=== PATIENT | male | born 1960 | race Caucasian/White ===

== ENCOUNTER 2024-11-16 09:35 | Inpatient (IN) ==
--- NOTE | 2024-11-16 09:47 | Emergency Department Note ---
Impression & Plan Cellulitis ED Provider Note CHIEF COMPLAINT: Infection HISTORY OF PRESENT ILLNESS: This 63-year-old male patient presents to the emergency department from the [facility] for swelling to the right elbow, and right forearm. He reports no injury to the arm, in terms of open area of the skin. He reports no bite. He states he was recently ill last week, with an upper respiratory infection. He states he is having bodyaches, fever, and feels generally unwell. REVIEW OF SYSTEMS: A review of systems was performed with positives and pertinent negatives listed in the history of present illness. All other systems were reviewed and are negative. ALLERGIES: See below MEDICATIONS: See below PMH: See below PHYSICAL EXAM: VITALS: Vitals are noted on the nurse's note and reviewed by myself. Vital signs stable. GENERAL: 63-year-old male, in no acute distress, nondiaphoretic, well-developed well-nourished. SKIN: Erythema and edema extending from the right elbow to distal forearm, on the medial aspect with soft tissue swelling present. No abrasion noted. HEAD: Normocephalic atraumatic. HEART: Tachycardia with regular rhythm without murmurs gallops or rubs. LUNGS: Clear to auscultation bilaterally without wheezes, rales or rhonchi. No retractions or accessory muscle use. MUSCULOSKELETAL: Full ROM, right elbow, however painful. Edema and erythema extends from the elbow to the distal forearm. Tenderness to palpation over the medial aspect of the proximal forearm. No tenderness to palpation over the elbow joint itself. Radial pulse intact. Supercharge Repair Supervisor strength 5/5. NEURO: Patient was alert and oriented to person place and time. No focal neurological deficits. MEDICAL DECISION MAKING: The patient is a 63-year-old male who arrives to the emergency department for evaluation of the above-stated complaint. A sepsis workup was obtained, with addition of ESR, CRP. Lab work shows leukocytosis, with a stable hemoglobin and hematocrit, CMP is generally unremarkable. ESR CRP elevated, lactate negative. X-ray imaging of the right elbow and forearm were obtained which per my interpretation show soft tissue swelling, however no bony abnormality. Ultrasound imaging was also obtained, which was not completed prior to admission and will be evaluated by the hospitalist. IV fluid resuscitation was provided, as well as IV morphine for pain, and IV antibiotics. The patient will require hospital admission, and likely evaluation from orthopedics if septic joint is diagnosis of exclusion. Contact was made with the [facility] hospitalist, Dr. Kelly who agreed to evaluate and accept the patient under his care for admission. Please refer to his documentation for further patient workup and care. DIFFERENTIAL DIAGNOSIS: Cellulitis, septic joint, sepsis, MRSA, DVT, necrotizing fasciitis, drug reaction, as well as other pathologies. Continuous supervisor properties: Order was placed for continuous supervisor properties. Patient was placed on the supervisor properties. Patient was noted to be in sinus tachycardia at an initial rate of 113 bpm. The chart was completed utilizing [employer] voice recognition software. Grammatical errors, random word insertions, pronoun errors, and incomplete sentences are an occasional consequence of this system due to software limitations, ambient noise, and hardware issues. Any formal questions or concerns about the content, text, or information contained within the body of this dictation should be directly addressed to the physician for clarification. Past Med/Surg History Problem List (Updated 11/16/24 @ 11:19 by Amador Kelly MD) Sepsis Social History Smoking Status: Former smoker Feels Safe at Home: Yes Results & Data (ED) Vital Signs Vital Signs - 24 hr 11/16/24 09:37 11/16/24 10:46 11/16/24 11:08 Temperature 37.2 C Temperature Source Temporal Artery Scan Pulse Rate 135 H 113 H Pulse Rate [Apical] 106 H Pulse Rhythm Pulse Rhythm [Apical] Regular Pulse Strength [Apical] Normal Respiratory Rate 20 20 Respiratory Effort / Characteristics Non-Labored Spontaneous Respiratory Depth Normal Normal Respiratory Pattern Regular Blood Pressure 108/79 Blood Pressure [Left Arm] 145/83 H Blood Pressure Mean 88 Blood Pressure Mean [Left Arm] 103 Pulse Oximetry 93 95 Oxygen Delivery Method Room Air Room Air Sepsis Recent Fever Within 48 Hours Yes Sepsis New/Unexplained Change in Mental Status No Sepsis Action Taken by Nursing No Action Required 11/16/24 11:10 Temperature Temperature Source Pulse Rate 104 H Pulse Rate [Apical] Pulse Rhythm Regular Pulse Rhythm [Apical] Pulse Strength [Apical] Respiratory Rate 20 Respiratory Effort / Characteristics Respiratory Depth Respiratory Pattern Blood Pressure Blood Pressure [Left Arm] Blood Pressure Mean Blood Pressure Mean [Left Arm] Pulse Oximetry 95 Oxygen Delivery Method Room Air Sepsis Recent Fever Within 48 Hours Sepsis New/Unexplained Change in Mental Status Sepsis Action Taken by Intermediate Medications Current Medication List: was personally reviewed by me Laboratory Data Attestation: I reviewed the patient's lab results. 11/16/24 10:10 11/16/24 10:10 Lab Results 11/16/24 Range/Units 10:10 WBC 16.43 H (4.8-10.8) K/ul RBC 5.27 (4.70-6.10) M/uL Hgb 15.6 (14.0-18.0) g/dl Hct 46.1 (42.0-52.0) % MCV 87.5 (80.0-100.0) fL MCH 29.6 (25.0-34.0) pg MCHC 33.8 (32.0-36.0) g/dL RDW Std Deviation 43.1 (36.4-46.3) fL RDW Coeff of Kemi 13.5 (11.5-14.5) % Plt Count 253 (130-400) K/uL MPV 9.4 (9.4-12.4) fL Immature Gran % (Auto) 0.7 % Neut % (Auto) 83.5 % Lymph % (Auto) 7.2 % [place] % (Auto) 8.3 % Eos % (Auto) 0.0 % Baso % (Auto) 0.3 % Neut # (Auto) 13.71 H (1.40-6.50) K/uL Lymph # (Auto) 1.18 L (1.20-3.40) K/uL [place] # (Auto) 1.37 H (0.11-0.59) K/uL Eos # (Auto) 0.00 (0.00-0.50) K/uL Baso # (Auto) 0.05 (0.00-0.20) K/uL Immature Gran # (Auto) 0.12 (0.01-0.20) K/uL ESR 34 H (0-20) mm/hr Sodium 134 L (136-145) mmol/L Potassium 3.9 (3.5-5.1) mmol/L Chloride 101 (98-107) mmol/L Carbon Dioxide 25 (21-32) mmol/L Anion Gap 8 (3-11) BUN 18 (6-23) mg/dl Creatinine 1.22 (0.6-1.4) mg/dl Est Cr Clr Drug Dosing 72.7 ml/min eGFR 67.03 BUN/Creatinine Ratio 14.8 (10-20) Glucose 130 H (70-99(Fasting)) mg/dl Lactate 1.7 (0.4-2.0) mmol/L Calcium 8.6 (8.6-10.3) mg/dl Magnesium 1.8 (1.7-2.4) mg/dl Total Bilirubin 1.4 H (0.2-1.0) mg/dl Direct Bilirubin 0.4 H (0-0.2) mg/dl AST 36 (13-39) U/L ALT 30 (7-52) U/L Alkaline Phosphatase 91 (34-104) U/L Troponin I High Sens 6.4 (0-20) pg/ml C-Reactive Protein 15.87 H (0-0.5) mg/dl Total Protein 7.2 (6.0-8.3) gm/dl Albumin 3.7 (3.4-5.0) gm/dl Procalcitonin 0.34 (0-0.5) ng/ml Administered Medications Sodium Chloride (Nss) 1,000 mls @ 999 mls/hr IV .Q1H1M KRISTA Stop: 11/16/24 12:00 Last Admin: 11/16/24 10:29 Dose: 999 mls/hr Documented By: Infusion: 11/16/24 10:29 Dose: Infused Documented By: Admin: 11/16/24 10:28 Dose: 999 mls/hr Documented By: FEROZ Discontinued Medications Piperacillin Sod/Tazobactam Sod (Zosyn) 4.5 gm in 100 mls @ 200 mls/hr IV NOW ONE; Protocol Stop: 11/16/24 11:08 Last Admin: 11/16/24 11:01 Dose: 200 mls/hr Documented By: FRANCOIS Morphine Sulfate (Morphine Sulfate 4 Mg/Ml 1 Ml Carp\Vial) 4 mg IV NOW STA Stop: 11/16/24 10:02 Last Admin: 11/16/24 10:47 Dose: 4 mg Documented By: FEROZ Imaging Data Attestation: I personally reviewed and interpreted this imaging study as follows: Radiologist's Impression: Elbow X-Ray 11/16/24 09:52 EXAM: Radiographs of the Right Elbow Complete 3 Views INDICATION: [place] TECHNIQUE: Frontal, lateral and oblique views of the right elbow. COMPARISON: No relevant prior studies available. FINDINGS: Bones/joints: No fracture, erosion or dislocation. Soft tissues: There is generalized periarticular soft tissue swelling. No soft tissue gas or radiopaque foreign body. IMPRESSION: There is generalized periarticular soft tissue swelling. No osseous abnormality. ACT 112: Negative or not required by law. Electronically signed by Rani Gonzalez 11-16-2024 10:54 AM Forearm X-Ray 11/16/24 09:52 EXAM: Radiographs of the Right Forearm 2 Views INDICATION: [place] TECHNIQUE: Frontal and lateral views of the right forearm. COMPARISON: No relevant prior studies available. FINDINGS: Bones/joints: No fracture, erosion or dislocation. Soft tissues: Mild dorsal soft tissue edema noted most prominent at the level of the proximal ulnar shaft. No soft tissue gas or radiopaque foreign body. IMPRESSION: Soft tissue swelling. No osseous abnormality. ACT 112: Negative or not required by law. Electronically signed by Rani Gonzalez 11-16-2024 10:54 AM Chest X-Ray 11/16/24 09:53 EXAM: Radiograph of the Chest 1 View INDICATION: Edema. TECHNIQUE: Frontal view of the chest. COMPARISON: No relevant prior studies available. FINDINGS: Lungs and pleural spaces: The lungs are slightly hyperinflated. Apical bullous changes present with mild parenchymal scarring. No consolidation or pulmonary edema. No pleural effusion or pneumothorax. Heart: Shape and configuration within normal limits allowing for technique. Mediastinum: Normal contour. Bones/joints: No fracture, erosion or dislocation. Soft tissues: No abnormality noted. No radiopaque foreign body noted. Upper abdomen: No abnormality noted. IMPRESSION: Chronic changes. No acute cardiopulmonary disease noted. ACT 112: Negative or not required by law. Electronically signed by Rani Gonzalez 11-16-2024 10:54 AM Discharge Plan Visit Data Chief Complaint: Arm Pain Stated Complaint: R ARM PAIN/SWELLING ED Provider: Omar Rogers ED Midlevel Provider: Merle Borden Discharge Problem: Cellulitis Forms Stand Alone Forms: [facility] Referrals Referrals: PCP,NO [Physician] -
[2024-11-16] MEDS: SODIUM CHLORIDE 0.9% 1,000 ML IV SCH (10:28)
[2024-11-16 10:37] LABS: Basophils # (auto) 0.05 K/uL (0.00-0.20); Basophils % (auto) 0.3 %; Hematocrit (blood only) 46.1 % (42.0-52.0); Hemoglobin 15.6 g/dl (14.0-18.0); Immature Granulocytes # (auto) 0.12 K/uL (0.01-0.20); Immature Granulocytes % (auto) 0.7 %; Lymphocytes # (auto) 1.18 K/uL (1.20-3.40); Lymphocytes % (auto) 7.2 %; Mean Corpuscular Hemoglobin 29.6 pg (25.0-34.0); Mean Corpuscular Hgb Conc 33.8 g/dL (32.0-36.0); Mean Corpuscular Volume 87.5 fL (80.0-100.0); Mean Platelet Volume 9.4 fL (9.4-12.4); Monocytes # (auto) 1.37 K/uL (0.11-0.59); Monocytes % (auto) 8.3 %; Neutrophils # (auto) 13.71 K/uL (1.40-6.50); Neutrophils % (auto) 83.5 %; Platelet Count 253 K/uL (130-400); RDW Coefficient of Variation 13.5 % (11.5-14.5); RDW Standard Deviation 43.1 fL (36.4-46.3); Red Blood Count 5.27 M/uL (4.70-6.10); White Blood Count 16.43 K/ul (4.8-10.8)
[2024-11-16] MEDS: MoRPHine SULFATE 4 MG/ML 1 ML CARP\\VIAL IV STA (10:47)
[2024-11-16] MEDS ORDERED: VANCOMYCIN CONSULT ACTIVE PRN (10:52)
--- NOTE | 2024-11-16 10:55 | XRay Report ---
EXAM: Radiographs of the Right Forearm 2 Views INDICATION: Edema TECHNIQUE: Frontal and lateral views of the right forearm. COMPARISON: No relevant prior studies available. FINDINGS: Bones/joints: No fracture, erosion or dislocation. Soft tissues: Mild dorsal soft tissue edema noted most prominent at the level of the proximal ulnar shaft. No soft tissue gas or radiopaque foreign body. IMPRESSION: Soft tissue swelling. No osseous abnormality. ACT 112: Negative or not required by law. Electronically signed by Rani Gonzalez 11-16-2024 10:54 AM
--- NOTE | 2024-11-16 10:55 | XRay Report ---
EXAM: Radiograph of the Chest 1 View INDICATION: Edema. TECHNIQUE: Frontal view of the chest. COMPARISON: No relevant prior studies available. FINDINGS: Lungs and pleural spaces: The lungs are slightly hyperinflated. Apical bullous changes present with mild parenchymal scarring. No consolidation or pulmonary edema. No pleural effusion or pneumothorax. Heart: Shape and configuration within normal limits allowing for technique. Mediastinum: Normal contour. Bones/joints: No fracture, erosion or dislocation. Soft tissues: No abnormality noted. No radiopaque foreign body noted. Upper abdomen: No abnormality noted. IMPRESSION: Chronic changes. No acute cardiopulmonary disease noted. ACT 112: Negative or not required by law. Electronically signed by Rani Gonzalez 11-16-2024 10:54 AM
--- NOTE | 2024-11-16 10:55 | XRay Report ---
EXAM: Radiographs of the Right Elbow Complete 3 Views INDICATION: [place] TECHNIQUE: Frontal, lateral and oblique views of the right elbow. COMPARISON: No relevant prior studies available. FINDINGS: Bones/joints: No fracture, erosion or dislocation. Soft tissues: There is generalized periarticular soft tissue swelling. No soft tissue gas or radiopaque foreign body. IMPRESSION: There is generalized periarticular soft tissue swelling. No osseous abnormality. ACT 112: Negative or not required by law. Electronically signed by Rani Gonzalez 11-16-2024 10:54 AM
[2024-11-16 10:59] LABS: Albumin Level 3.7 gm/dl (3.4-5.0); BUN Creatinine Ratio 14.8 (10-20); Bilirubin Direct 0.4 mg/dl (0-0.2); Bilirubin,Total 1.4 mg/dl (0.2-1.0); C Reactive Protein 15.87 mg/dl (0-0.5); Calcium 8.6 mg/dl (8.6-10.3); Creatinine Clr Calc Pharmacy 72.7 ml/min; Magnesium 1.8 mg/dl (1.7-2.4); Potassium 3.9 mmol/L (3.5-5.1); Total Protein 7.2 gm/dl (6.0-8.3)
[2024-11-16] MEDS: PIPERACILLIN/TAZOBACTAM 4.5 GM/100 ML BAG IV ONE (11:01)
[2024-11-16 11:06] LABS: Troponin I High Sensitivity 6.4 pg/ml (0-20)
--- NOTE | 2024-11-16 11:19 | History & Physical Report ---
Date of Service November 16, 2024 Assessment & Plan (1) Sepsis: Plan: Lactate within normal limits, no hypotension, does not meet criteria for fluid bolus however 2 L normal saline bolus given in the ER regardless, no need for additional fluids Source = right arm cellulitis Empiric antibiotics with vancomycin and Zosyn Follow-up blood cultures (2) Right arm cellulitis: Plan: Failed outpatient treatment with IM ceftriaxone and p.o. Bactrim No fluctuance on exam but has ultrasound pending ordered by the emergency room. No olecranon bursitis Reportedly already improving after vancomycin and Zosyn started in the emergency room Elevate extremity, continue antibiotics as above Plan VTE prophylaxis - Lovenox 40 mg subcu daily Diet - regular Disposition - admit to med/tele Admission and Anticipated Discharge Date Admission Date: November 16, 2024 History of Present Illness Chief Complaint: Right arm cellulitis Primary Care Provider: PACHECO Wandy Nicole is a 63-year-old male who presents to the ER with right arm cellulitis. He reports symptoms started 2 days ago with fever, chills, erythema of his right mid forearm which subsequently spread to go beyond his elbow and his wrist. He notes is already improving since antibiotic started in the emergency room. No serious infections previously. No tenderness over his right elbow. He was started on Bactrim and ceftriaxone yesterday at the [facility] however despite this the erythema area spread therefore he was sent to the ER today. Allergies Allergy/AdvReac Type Severity Reaction Status Date / Time No Known Allergies Allergy Unverified 11/16/24 11:25 Home Medications Medication Instructions Recorded Confirmed Type ceftriaxone 1 gram intravenous 1 g IV BID 11/16/24 11/16/24 History solution cholecalciferol (vitamin D3) 25 25 mcg PO DAILY 11/16/24 11/16/24 History mcg (1,000 unit) tablet (Vitamin D3) diclofenac sodium 50 mg 50 mg PO TID 11/16/24 11/16/24 History tablet,delayed release sulfamethoxazole 800 1 tab PO BID 11/16/24 11/16/24 History mg-trimethoprim 160 mg tablet (Bactrim DS) Past Med/Surg History Problem List (Updated 11/16/24 @ 12:02 by Amador Kelly MD) Right arm cellulitis Sepsis Medical History (Updated 11/16/24 @ 12:02 by Amador Kelly MD) Arthritis of knee Surgical History (Updated 11/16/24 @ 11:54 by Amador Kelly MD) History of hand surgery Left hand surgery from prior cut Social History Smoking Status: Former smoker Feels Safe at Home: Yes Review of Systems 2 Review of Systems: All systems reviewed & are unremarkable except as noted in HPI & below Physical Exam 2 Constitutional: WD/WN, vitals as above Respiratory: normal respiratory effort, lungs clear to auscultation Cardiovascular: Rate/Rhythm: regular rhythm and + tachycardic Heart Sounds: no murmur Extremities: normal capillary refill Gastrointestinal (Abdomen): normal bowel sounds, soft, nontender, no hepatosplenomegaly Skin: Erythema and swelling from just above right elbow to wrist with significant swelling but no fluctuance on the right mid forearm Results & Data Results & Data Vital Signs (Past 12 Hours) Vital Signs Temp Pulse Pulse Resp BP BP Pulse Ox 11/16/24 11:10 104 H 20 95 11/16/24 11:08 106 H 20 145/83 H 95 11/16/24 10:46 113 H 11/16/24 09:37 37.2 C 135 H 20 108/79 93 O2 Del Method 11/16/24 11:10 Room Air 11/16/24 11:08 Room Air 11/16/24 10:46 11/16/24 09:37 Room Air Laboratory Results Abnormal lab results 11/16/24 Range/Units 10:10 WBC 16.43 H (4.8-10.8) K/ul Neut # (Auto) 13.71 H (1.40-6.50) K/uL Lymph # (Auto) 1.18 L (1.20-3.40) K/uL [place] # (Auto) 1.37 H (0.11-0.59) K/uL ESR 34 H (0-20) mm/hr Sodium 134 L (136-145) mmol/L Glucose 130 H (70-99(Fasting)) mg/dl Total Bilirubin 1.4 H (0.2-1.0) mg/dl Direct Bilirubin 0.4 H (0-0.2) mg/dl C-Reactive Protein 15.87 H (0-0.5) mg/dl Diagnostic Findings Radiograph of the Chest 1 View INDICATION: Edema. TECHNIQUE: Frontal view of the chest. COMPARISON: No relevant prior studies available. FINDINGS: Lungs and pleural spaces: The lungs are slightly hyperinflated. Apical bullous changes present with mild parenchymal scarring. No consolidation or pulmonary edema. No pleural effusion or pneumothorax. Heart: Shape and configuration within normal limits allowing for technique. Mediastinum: Normal contour. Bones/joints: No fracture, erosion or dislocation. Soft tissues: No abnormality noted. No radiopaque foreign body noted. Upper abdomen: No abnormality noted. IMPRESSION: Chronic changes. No acute cardiopulmonary disease noted. Radiographs of the Right Forearm 2 Views INDICATION: Edema TECHNIQUE: Frontal and lateral views of the right forearm. COMPARISON: No relevant prior studies available. FINDINGS: Bones/joints: No fracture, erosion or dislocation. Soft tissues: Mild dorsal soft tissue edema noted most prominent at the level of the proximal ulnar shaft. No soft tissue gas or radiopaque foreign body. IMPRESSION: Soft tissue swelling. No osseous abnormality. Radiographs of the Right Elbow Complete 3 Views INDICATION: [place] TECHNIQUE: Frontal, lateral and oblique views of the right elbow. COMPARISON: No relevant prior studies available. FINDINGS: Bones/joints: No fracture, erosion or dislocation. Soft tissues: There is generalized periarticular soft tissue swelling. No soft tissue gas or radiopaque foreign body. IMPRESSION: There is generalized periarticular soft tissue swelling. No osseous abnormality. Medications Administered ER medications given: Morphine 4 mg IV Zosyn 4.5 g IV Vancomycin 1750 mg IV Normal saline 2 L bolus ECG Additional Comments: Ordered and pending Code Status & VTE Plan Code Status Full VTE Prophylaxis Plan VTE Prophylaxis will be ordered: Yes PG Care Time/CCT Total # of Minutes Spent Total Time Spent with Patient: Total time spent is greater than 50% in coordination of care (as documented) at patient's floor/unit and/or counseling patient: Coding Level of Care Code 47827 INT INP/OBS CARE 3/75MIN Diagnoses Sepsis A41.9 Right arm cellulitis L03.113
[2024-11-16] MEDS: ACETAMINOPHEN 500 MG TAB PO STA (12:03)
[2024-11-16 12:04] LABS: Adenovirus PCR Not Detected (NotDetected); Bordetella parapertussis PCR Not Detected (NotDetected); Bordetella pertussis PCR Not Detected (NotDetected); Chlamydia pneumoniae PCR Not Detected (NotDetected); Coronavirus 229E PCR Not Detected (NotDetected); Coronavirus CoV-2 (COVID19)PCR Not Detected (NotDetected); Coronavirus HKU1 PCR Not Detected (NotDetected); Coronavirus NL63 PCR Not Detected (NotDetected); Coronavirus OC43PCR Not Detected (NotDetected); Human Metapneumovirus PCR Not Detected (NotDetected); Influenza A PCR Not Detected (NotDetected); Influenza B PCR Not Detected (NotDetected); Mycoplasma pneumoniae PCR Not Detected (NotDetected); Parainfluenza Virus 1 PCR Not Detected (NotDetected); Parainfluenza Virus 2 PCR Not Detected (NotDetected); Parainfluenza Virus 3 PCR Not Detected (NotDetected); Parainfluenza Virus 4 PCR Not Detected (NotDetected); Respiratory Syncytial VirusPCR Not Detected (NotDetected); Rhinovirus/Enterovirus PCR Not Detected (NotDetected)
[2024-11-16] MEDS: VANCOMYCIN HCL 1,750 MG in SODIUM CHLORIDE 0.9% 500 ML IV ONE (12:06)
[2024-11-16] MEDS: KETOROLAC TROMETHAMINE 15 MG/ML VIAL IV STA (12:06)
--- NOTE | 2024-11-16 13:45 | Ultrasound Report ---
EXAM: US Right Lower Extremity Non-Vascular Complete INDICATION: Pain and edema. TECHNIQUE: Sonographic images labeled right forearm proximal forearm posterior provided. COMPARISON: No relevant prior studies available. FINDINGS: In the area scanned is a markedly complex fluid collection measuring 10.1 cm long by 1.6 cm AP by 3.2 cm transverse. There is minimal internal vascularity. IMPRESSION: In the area of interest is a large very complex fluid collection presumably reflecting abscess or hematoma. It is not liquefied. ACT 112: Negative or not required by law. Electronically signed by Rani Gonzalez 11-16-2024 13:44 PM
[2024-11-16] MEDS: LACTATED RINGER'S 1,000 ML IV STA (15:21)
[2024-11-16] MEDS ORDERED: ACETAMINOPHEN 325 MG TAB PO PRN (15:33)
[2024-11-16] MEDS: PIPERACILLIN/TAZOBACTAM 4.5 GM/100 ML BAG IV SCH (16:04)
--- NOTE | 2024-11-16 16:06 | Pharmacy Report ---
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 Unknown baseline, but not likely significant BRIJESH. OK to schedule vancomycin for now and will follow SCr. Plan Vancomycin * Loading dose: 1750 mg IV x 1 * Maintenance dose: 1000 mg IV every 12 hours * Regimen is predicted to achieve target AUC/DECLAN of 400-600 mg/L.hr * Random level ordered for: 11/18 w AM labs Pharmacy will continue to follow and will adjust dose/frequency as necessary. Thank you. Pharmacy has transitioned to AUC monitoring for vancomycin. AUC/DECLAN is the preferred PK/PD target and is associated with decreased risk of nephrotoxicity compared to traditional trough targets.
[2024-11-16] MEDS: ONDANSETRON INJ 2 MG/ML 2 ML VIAL IV PRN (19:43)
[2024-11-16] MEDS ORDERED: ENOXAPARIN INJ 40 MG/0.4 ML SYR SQ SCH (21:00)
[2024-11-16] MEDS: VANCOMYCIN HCL 1,000 MG/270 ML BAG IV SCH (21:50)
[2024-11-17] MEDS: SODIUM CHLORIDE 0.9% 1,000 ML IV SCH (00:06)
[2024-11-17 06:26] LABS: Basophils # (auto) 0.05 K/uL (0.00-0.20); Basophils % (auto) 0.4 %; Eosinophils # (auto) 0.01 K/uL (0.00-0.50); Eosinophils % (auto) 0.1 %; Hematocrit (blood only) 40.1 % (42.0-52.0); Hemoglobin 13.8 g/dl (14.0-18.0); Immature Granulocytes # (auto) 0.11 K/uL (0.01-0.20); Immature Granulocytes % (auto) 0.8 %; Lymphocytes # (auto) 0.92 K/uL (1.20-3.40); Lymphocytes % (auto) 6.8 %; Mean Corpuscular Hemoglobin 30.1 pg (25.0-34.0); Mean Corpuscular Hgb Conc 34.4 g/dL (32.0-36.0); Mean Corpuscular Volume 87.6 fL (80.0-100.0); Mean Platelet Volume 9.6 fL (9.4-12.4); Monocytes % (auto) 5.9 %; Neutrophils # (auto) 11.61 K/uL (1.40-6.50); Platelet Count 221 K/uL (130-400); RDW Coefficient of Variation 13.5 % (11.5-14.5); RDW Standard Deviation 43.4 fL (36.4-46.3); Red Blood Count 4.58 M/uL (4.70-6.10)
[2024-11-17 06:59] LABS: BUN Creatinine Ratio 14.6 (10-20); Calcium 7.6 mg/dl (8.6-10.3); Creatinine Clr Calc Pharmacy 111.3 ml/min; Potassium 3.5 mmol/L (3.5-5.1)
[2024-11-17] MEDS ORDERED: Nursing to Pharmacy Communication SCH (09:15)
[2024-11-17 09:32] LABS: Appearance Urine Clear (Clear); Bacteria Urine Automated None Seen (None Seen); Bilirubin Urine 1+ (Negative); Blood Urine Negative (Negative); Cast Urine Automated 0-2 /lpf (0-2); Color Urine Dark Yellow; Epithelial Cell Urine Auto 0-2 /hpf (0-2); Glucose Urine UA Negative (Negative); Ketones Urine 1+ (Negative); Leukocyte Esterase Urine Negative (Negative); Nitrite Urine Negative (Negative); Protein Urine 1+ (Negative); RBC Urine Automated 0-2 /hpf (0-2); Specific Gravity Urine 1.017 (1.000-1.030); Urobilinogen Urine Positive (Negative); WBC Urine Automated 0-5 /hpf (0-5)
--- NOTE | 2024-11-17 10:16 | Electrocardiogram Report ---
Test Reason : Blood Pressure : */* mmHG Vent. Rate : 112 BPM Atrial Rate : 112 BPM P-R Int : 144 ms QRS Dur : 88 ms QT Int : 328 ms P-R-T Axes : 82 -43 48 degrees QTcB Int : 447 ms Sinus tachycardia Left axis deviation Abnormal ECG No previous ECGs available Confirmed by Prince King ([id number]) on 11/17/2024 10:16:09 AM Referred By: Wandy BERGMAN Confirmed By: Prince King
--- NOTE | 2024-11-17 10:28 | Electrocardiogram Report ---
Test Reason : Blood Pressure : */* mmHG Vent. Rate : 105 BPM Atrial Rate : 105 BPM P-R Int : 154 ms QRS Dur : 92 ms QT Int : 354 ms P-R-T Axes : 71 -41 16 degrees QTcB Int : 467 ms Sinus tachycardia Left axis deviation Abnormal ECG When compared with ECG of 16-Nov-2024 10:15, (unconfirmed) No significant change was found Confirmed by Prince King ([id number]) on 11/17/2024 10:28:28 AM Referred By: Wandy BERGMAN Confirmed By: Prince King
--- NOTE | 2024-11-17 11:19 | Anesthesiology Consultation ---
Date of Service November 17, 2024 Assessment & Plan (1) Encounter for pre-operative examination: Chart Review Chart Review: Acceptable Risk for Surgery (urgent) History Surgery Operation Date: 11/17/24 10:00 Proposed Procedures p Incision and Drainage Forearm - Lele Chaves MD Height/Weight Height: 6 ft 6 in Weight: 100.1 kg Allergies Allergy/AdvReac Type Severity Reaction Status Date / Time No Known Allergies Allergy Unverified 11/16/24 11:25 Medications Home Medications Medication Instructions Recorded Confirmed Last Taken ceftriaxone 1 gram intravenous 1 g IV BID 11/16/24 11/16/24 11/16/24 solution cholecalciferol (vitamin D3) 25 25 mcg PO DAILY 11/16/24 11/16/24 11/15/24 mcg (1,000 unit) tablet (Vitamin D3) diclofenac sodium 50 mg 50 mg PO TID 11/16/24 11/16/24 11/15/24 tablet,delayed release sulfamethoxazole 800 1 tab PO BID 11/16/24 11/16/24 11/16/24 mg-trimethoprim 160 mg tablet (Bactrim DS) Active Medications Generic Name Dose Route Start Last Admin Trade Name Freq PRN Reason Stop Dose Admin Piperacillin Sod/Tazobactam Sod 4.5 gm in 100 mls @ 25 mls/hr 11/16/24 16:00 11/17/24 08:46 Zosyn IV 11/23/24 15:59 25 mls/hr Q8H KRISTA Administration Protocol Sodium Chloride 1,000 mls @ 80 mls/hr 11/17/24 00:00 11/17/24 00:06 Nss IV 11/17/24 12:29 80 mls/hr .[id number] KRISTA Administration Ondansetron HCl 4 mg 11/16/24 19:23 11/16/24 19:43 Ondansetron Inj 2 Mg/Ml 2 Ml Vial IV 12/16/24 19:22 4 mg Q4H PRN Administration Nausea Past Medical History Medical History Arthritis of knee Past Surgical History Surgical History History of hand surgery Left hand surgery from prior cut Social History Smoking Status: Former smoker Smoking End Date: quit 20 years ago Hx Alcohol Use: No Hx Substance Use: No Physical Exam Vital Signs Last Vital Signs Temp 36.7 C 11/17/24 07:20 Pulse 104 H 11/17/24 07:20 Resp 18 11/17/24 07:20 BP 137/76 11/17/24 07:20 Pulse Ox 92 11/17/24 07:20 O2 Del Method Room Air 11/17/24 07:20 O2 Flow Rate 2 11/17/24 04:00 Testing Laboratory Results 11/17/24 05:42 11/17/24 05:42 Urine Color Dark Yellow 11/17/24 09:01 Urine Appearance Clear (Clear) 11/17/24 09:01 Urine pH 6.0 (4.5-7.5) 11/17/24 09:01 Ur Specific [place] 1.017 (1.000-1.030) 11/17/24 09:01 Urine Protein 1+ (Negative) H 11/17/24 09:01 Urine Glucose (UA) Negative (Negative) 11/17/24 09:01 Urine Ketones 1+ (Negative) H 11/17/24 09:01 Urine Nitrite Negative (Negative) 11/17/24 09:01 Ur Leukocyte Esterase Negative (Negative) 11/17/24 09:01 Urine WBC (Auto) 0-5 /hpf (0-5) 11/17/24 09:01 Urine RBC (Auto) 0-2 /hpf (0-2) 11/17/24 09:01 U Hyaline Cast (Auto) 0-2 /lpf (0-2) 11/17/24 09:01 U Epithel Cells (Auto) 0-2 /hpf (0-2) 11/17/24 09:01 Urine Bacteria (Auto) None Seen (None Seen) 11/17/24 09:01 11/16/24 10:43 Aerobic Blood Culture - Preliminary Blood No growth in Aerobic bottle after 24 hours. Anaerobic Blood Culture - Preliminary No growth in Anaerobic bottle after 24 hours. 11/16/24 10:10 Aerobic Blood Culture - Preliminary Blood No growth in Aerobic bottle after 24 hours. Anaerobic Blood Culture - Preliminary No growth in Anaerobic bottle after 24 hours. Electrocardiogram Date: 11/16/24 Findings: + ST @ (105) Chest X-Ray Date: 11/16/24 Findings: + NAD
[2024-11-17] MEDS ORDERED: ATROPINE SULFATE 0.1 MG/ML 10ML SYR IV PRN (11:22)
[2024-11-17] MEDS ORDERED: PROMETHAZINE HCL 6.25 MG in SODIUM CHLORIDE 0.9% 50 ML IV PRN (11:22)
[2024-11-17] MEDS ORDERED: HYDROmorphone INJ 1 MG/ML SYRINGE IV PRN (11:22)
--- NOTE | 2024-11-17 11:27 | Orthopedic Consultation ---
Date of Consultation November 17, 2024 Assessment & Plan (1) Right arm cellulitis: (2) Abscess: Findings discussed with patient. He has evidence of infection. Erythema pain and swelling. There is questionable fluctuance on exam in the area of most maximum tenderness. There is finding of fluid collection on the ultrasound indicative of an abscess. White count elevated. He has been afebrile. Sed rate and ESR are elevated. He has improvement on IV antibiotics however I think he would benefit from having exploration and drainage. He agrees to proceed. He is educated about the treatment options risks benefits and rehab. Plan for an I&D today. History of Present Illness Attending Physician: Pedro Ansari History of Present Illness The patient is a 63-year-old incarcerated individual with a 2-day history of worsening right arm redness swelling and pain. He has no history of injuries and has never had a problem like this before. He is right-hand dominant. They tried some oral antibiotics at the facility. He was admitted here and has noted some improvement with the arm thus far. Allergies Allergy/AdvReac Type Severity Reaction Status Date / Time No Known Allergies Allergy Unverified 11/16/24 11:25 Home Medications Medication Instructions Recorded Confirmed Type ceftriaxone 1 gram intravenous 1 g IV BID 11/16/24 11/16/24 History solution cholecalciferol (vitamin D3) 25 25 mcg PO DAILY 11/16/24 11/16/24 History mcg (1,000 unit) tablet (Vitamin D3) diclofenac sodium 50 mg 50 mg PO TID 11/16/24 11/16/24 History tablet,delayed release sulfamethoxazole 800 1 tab PO BID 11/16/24 11/16/24 History mg-trimethoprim 160 mg tablet (Bactrim DS) Patient History Medical History Arthritis of knee Surgical History History of hand surgery Left hand surgery from prior cut Social History Smoking Status: Former smoker Smoking End Date: quit 20 years ago; Second Hand Exposure: No; Tobacco Cessation Education Requested by Patient: No Hx Alcohol Use: No Hx Substance Use: No Preferred Language: [place]ian Communication Ability: Effective Sanitarian Required: No Beliefs That Will Affect Care: None Current Living Situation: Other Current Living Situation Comment: correctional facility Other Information That Helps Us Care for You: No Feels Safe at Home: Yes Safety Concerns: Feels Safe At This Time Assistive Devices: Glasses Physical Exam Physical Exam: There is redness most intensely over the proximal lateral third of the right elbow. There is some questionable fluctuance in this area. Erythema extends down to the distal third of the forearm and also courses around to the medial and posterior side of the elbow. There is no fluid within the olecranon bursa. He has 70 degrees supination 80 degrees pronation elbow motion 0/30/120 with minimal pain. He can activate biceps and triceps against resistance. Median radial and ulnar musculocutaneous motor and sensory functions are intact radial pulses 1+ there is full movement of the fingers and wrist. There is a little bit of tenderness extending towards the olecranon otherwise nothing else is tender. Results & Data Vital Signs (Past 12 Hours) Vital Signs Temp Pulse Resp BP BP Pulse Ox O2 Del Method 11/17/24 07:20 Room Air 11/17/24 07:20 36.7 C 104 H 18 137/76 92 Room Air 11/17/24 04:00 36.8 C 101 H 18 120/69 93 Nasal Cannula O2 Flow Rate 11/17/24 07:20 11/17/24 07:20 11/17/24 04:00 2 Laboratory Results Laboratory Results WBC 13.50 K/ul (4.8-10.8) H 11/17/24 05:42 RBC 4.58 M/uL (4.70-6.10) L 11/17/24 05:42 Hgb 13.8 g/dl (14.0-18.0) L 11/17/24 05:42 Hct 40.1 % (42.0-52.0) L 11/17/24 05:42 MCV 87.6 fL (80.0-100.0) 11/17/24 05:42 MCH 30.1 pg (25.0-34.0) 11/17/24 05:42 MCHC 34.4 g/dL (32.0-36.0) 11/17/24 05:42 RDW Std Deviation 43.4 fL (36.4-46.3) 11/17/24 05:42 RDW Coeff of Kemi 13.5 % (11.5-14.5) 11/17/24 05:42 Plt Count 221 K/uL (130-400) 11/17/24 05:42 MPV 9.6 fL (9.4-12.4) 11/17/24 05:42 Immature Gran % (Auto) 0.8 % 11/17/24 05:42 Neut % (Auto) 86.0 % 11/17/24 05:42 Lymph % (Auto) 6.8 % 11/17/24 05:42 [place] % (Auto) 5.9 % 11/17/24 05:42 Eos % (Auto) 0.1 % 11/17/24 05:42 Baso % (Auto) 0.4 % 11/17/24 05:42 Neut # (Auto) 11.61 K/uL (1.40-6.50) H 11/17/24 05:42 Lymph # (Auto) 0.92 K/uL (1.20-3.40) L 11/17/24 05:42 [place] # (Auto) 0.80 K/uL (0.11-0.59) H 11/17/24 05:42 Eos # (Auto) 0.01 K/uL (0.00-0.50) 11/17/24 05:42 Baso # (Auto) 0.05 K/uL (0.00-0.20) 11/17/24 05:42 Immature Gran # (Auto) 0.11 K/uL (0.01-0.20) 11/17/24 05:42 ESR 34 mm/hr (0-20) H 11/16/24 10:10 Sodium 134 mmol/L (136-145) L 11/17/24 05:42 Potassium 3.5 mmol/L (3.5-5.1) 11/17/24 05:42 Chloride 106 mmol/L (98-107) 11/17/24 05:42 Carbon Dioxide 22 mmol/L (21-32) 11/17/24 05:42 Anion Gap 6 (3-11) 11/17/24 05:42 BUN 13 mg/dl (6-23) 11/17/24 05:42 Creatinine 0.89 mg/dl (0.6-1.4) D 11/17/24 05:42 Est Cr Clr Drug Dosing 111.3 ml/min 11/17/24 05:42 eGFR 96.89 11/17/24 05:42 BUN/Creatinine Ratio 14.6 (10-20) 11/17/24 05:42 Glucose 117 mg/dl (70-99(Fasting)) H 11/17/24 05:42 Lactate 1.7 mmol/L (0.4-2.0) 11/16/24 10:10 Calcium 7.6 mg/dl (8.6-10.3) L 11/17/24 05:42 Magnesium 1.8 mg/dl (1.7-2.4) 11/16/24 10:10 Total Bilirubin 1.4 mg/dl (0.2-1.0) H 11/16/24 10:10 Direct Bilirubin 0.4 mg/dl (0-0.2) H 11/16/24 10:10 AST 36 U/L (13-39) 11/16/24 10:10 ALT 30 U/L (7-52) 11/16/24 10:10 Alkaline Phosphatase 91 U/L (34-104) 11/16/24 10:10 Troponin I High Sens 6.4 pg/ml (0-20) 11/16/24 10:10 C-Reactive Protein 15.87 mg/dl (0-0.5) H 11/16/24 10:10 Total Protein 7.2 gm/dl (6.0-8.3) 11/16/24 10:10 Albumin 3.7 gm/dl (3.4-5.0) 11/16/24 10:10 Procalcitonin 0.34 ng/ml (0-0.5) 11/16/24 10:10 Urine Color Dark Yellow 11/17/24 09:01 Urine Appearance Clear (Clear) 11/17/24 09:01 Urine pH 6.0 (4.5-7.5) 11/17/24 09:01 Ur Specific [place] 1.017 (1.000-1.030) 11/17/24 09:01 Urine Protein 1+ (Negative) H 11/17/24 09:01 Urine Glucose (UA) Negative (Negative) 11/17/24 09:01 Urine Ketones 1+ (Negative) H 11/17/24 09:01 Urine Blood Negative (Negative) 11/17/24 09:01 Urine Nitrite Negative (Negative) 11/17/24 09:01 Urine Bilirubin 1+ (Negative) H 11/17/24 09:01 Urine Urobilinogen Positive (Negative) H 11/17/24 09:01 Ur Leukocyte Esterase Negative (Negative) 11/17/24 09:01 Urine WBC (Auto) 0-5 /hpf (0-5) 11/17/24 09:01 Urine RBC (Auto) 0-2 /hpf (0-2) 11/17/24 09:01 U Hyaline Cast (Auto) 0-2 /lpf (0-2) 11/17/24 09:01 U Epithel Cells (Auto) 0-2 /hpf (0-2) 11/17/24 09:01 Urine Bacteria (Auto) None Seen (None Seen) 11/17/24 09:01 Nasal Screen MRSA (PCR) Negative (Negative) 11/16/24 21:25 Adenovirus (PCR) Not Detected (NotDetected) 11/16/24 10:40 B. pertussis DNA (PCR) Not Detected (NotDetected) 11/16/24 10:40 B.parapertussis DNA PCR Not Detected (NotDetected) 11/16/24 10:40 C. pneumoniae DNA (PCR) Not Detected (NotDetected) 11/16/24 10:40 Coronavirus OC43 (PCR) Not Detected (NotDetected) 11/16/24 10:40 Coronavirus HKU1 (PCR) Not Detected (NotDetected) 11/16/24 10:40 Coronavirus 229E (PCR) Not Detected (NotDetected) 11/16/24 10:40 SARS-CoV-2 (PCR) Not Detected (NotDetected) 11/16/24 10:40 Coronavirus NL63 (PCR) Not Detected (NotDetected) 11/16/24 10:40 Human Metapneumovir PCR Not Detected (NotDetected) 11/16/24 10:40 Influenza Type A (PCR) Not Detected (NotDetected) 11/16/24 10:40 Influenza Type B (PCR) Not Detected (NotDetected) 11/16/24 10:40 M. pneumoniae (PCR) Not Detected (NotDetected) 11/16/24 10:40 Parainfluenza 1 (PCR) Not Detected (NotDetected) 11/16/24 10:40 Parainfluenza 2 (PCR) Not Detected (NotDetected) 11/16/24 10:40 Parainfluenza 3 (PCR) Not Detected (NotDetected) 11/16/24 10:40 Parainfluenza 4 (PCR) Not Detected (NotDetected) 11/16/24 10:40 RSV (PCR) Not Detected (NotDetected) 11/16/24 10:40 Entero/Rhino (PCR) Not Detected (NotDetected) 11/16/24 10:40 Group A Strep (PCR) NOT DETECTED (NotDetected) 11/16/24 10:40 Impressions Elbow X-Ray 11/16/24 09:52 EXAM: Radiographs of the Right Elbow Complete 3 Views INDICATION: [place] TECHNIQUE: Frontal, lateral and oblique views of the right elbow. COMPARISON: No relevant prior studies available. FINDINGS: Bones/joints: No fracture, erosion or dislocation. Soft tissues: There is generalized periarticular soft tissue swelling. No soft tissue gas or radiopaque foreign body. IMPRESSION: There is generalized periarticular soft tissue swelling. No osseous abnormality. ACT 112: Negative or not required by law. Electronically signed by Rani Gonzalez 11-16-2024 10:54 AM Forearm X-Ray 11/16/24 09:52 EXAM: Radiographs of the Right Forearm 2 Views INDICATION: [place] TECHNIQUE: Frontal and lateral views of the right forearm. COMPARISON: No relevant prior studies available. FINDINGS: Bones/joints: No fracture, erosion or dislocation. Soft tissues: Mild dorsal soft tissue edema noted most prominent at the level of the proximal ulnar shaft. No soft tissue gas or radiopaque foreign body. IMPRESSION: Soft tissue swelling. No osseous abnormality. ACT 112: Negative or not required by law. Electronically signed by Rani Gonzalez 11-16-2024 10:54 AM Chest X-Ray 11/16/24 09:53 EXAM: Radiograph of the Chest 1 View INDICATION: Edema. TECHNIQUE: Frontal view of the chest. COMPARISON: No relevant prior studies available. FINDINGS: Lungs and pleural spaces: The lungs are slightly hyperinflated. Apical bullous changes present with mild parenchymal scarring. No consolidation or pulmonary edema. No pleural effusion or pneumothorax. Heart: Shape and configuration within normal limits allowing for technique. Mediastinum: Normal contour. Bones/joints: No fracture, erosion or dislocation. Soft tissues: No abnormality noted. No radiopaque foreign body noted. Upper abdomen: No abnormality noted. IMPRESSION: Chronic changes. No acute cardiopulmonary disease noted. ACT 112: Negative or not required by law. Electronically signed by Rani Gonzalez 11-16-2024 10:54 AM Soft Tissue Ultrasound 11/16/24 10:37 EXAM: US Right Lower Extremity Non-Vascular Complete INDICATION: Pain and edema. TECHNIQUE: Sonographic images labeled right forearm proximal forearm posterior provided. COMPARISON: No relevant prior studies available. FINDINGS: In the area scanned is a markedly complex fluid collection measuring 10.1 cm long by 1.6 cm AP by 3.2 cm transverse. There is minimal internal vascularity. IMPRESSION: In the area of interest is a large very complex fluid collection presumably reflecting abscess or hematoma. It is not liquefied. ACT 112: Negative or not required by law. Electronically signed by Rani Gonzalez 11-16-2024 13:44 PM
[2024-11-17] MEDS ORDERED: DEXAMETHASONE SOD INJ 4 MG/ML VIAL ONE (11:31)
[2024-11-17] MEDS ORDERED: ROCURONIUM BROMIDE 10 MG/ML 5 ML VIAL IV ONE (11:31)
[2024-11-17] MEDS ORDERED: ONDANSETRON INJ 2 MG/ML 2 ML VIAL ONE (11:31)
[2024-11-17] MEDS ORDERED: MIDAZOLAM HCL 1 MG/ML 2ML VIAL ONE (11:31)
[2024-11-17] MEDS ORDERED: PROPOFOL IV EMULSION 10 MG/ML 20 ML VIAL IV ONE (11:31)
[2024-11-17] MEDS ORDERED: fentaNYL citrate PF 100 MCG/2 ML VIAL ONE ×2 (11:31→12:46)
[2024-11-17] MEDS ORDERED: SUGAMMADEX SODIUM 200 MG/2 ML VIAL IV ONE (11:32)
[2024-11-17] MEDS ORDERED: ceFAZolin 330 MG/ML 1 GM VIAL ONE (12:21)
[2024-11-17] MEDS: ceFAZolin 2000MG 2,000 MG/15 ML SYR IV ONE (12:22)
--- NOTE | 2024-11-17 13:59 | Operative Report ---
Post Operative Report Pre & Post Diagnosis Operation Date: 11/17/24 10:00 Pre-Op Diagnosis: 1. Right arm cellulitis 2. Abscess Post-Op Diagnosis: 1. Right arm cellulitis 2. Abscess I identified the patient and participated in the time-out.: Yes Procedure Operation Date: 11/17/24 10:00 Actual Procedures p Irrigation and Debridment, Right Forearm with Application of Wound Vac(Right) - Lele Chaves MD Surgeon Lele Chaves MD [employer] Paraprofessional Raman Echols DO Estimated Blood Loss 50 Findings Consistent with Post-Op Diagnosis Specimens Right forearm cultures x 2 Right forearm muscle, soft tissue, fascia specimens Description of Procedure The patient was brought to the operative suite where he underwent anesthesia. The right upper extremity was prepped and draped in the usual sterile fashion. A surgical timeout was performed. The patient underwent a right forearm incision and debridement with wound VAC application. Please see Dr. Chaves's operative report for full details. I was present and assist with patient positioning, limb positioning, surgical approach, debridement of tissue, wound VAC application. Patient was awakened and taken to the recovery room in satisfactory condition I attest to the content of the Intraoperative Record and any orders documented therein. Any exceptions are noted below.
--- NOTE | 2024-11-17 14:11 | Operative Report ---
Post Operative Report Pre & Post Diagnosis Operation Date: 11/17/24 10:00 Pre-Op Diagnosis: 1. Right arm cellulitis 2. Abscess Post-Op Diagnosis: 1. Right arm cellulitis 2. Abscess I identified the patient and participated in the time-out.: Yes Procedure Operation Date: 11/17/24 10:00 Actual Procedures p Irrigation and Debridment, Right Forearm with Application of Wound Vac(Right) - Lele Chaves MD Surgeon Lele Chaves MD [employer] Apprentice Raman Echols DO Estimated Blood Loss 50 Findings Consistent with Post-Op Diagnosis Specimens Biopsy of unhealthy muscle, necrotic fascia and fat tissue Drains Wound VAC Anesthesia Type General Complications none Disposition Accompanied Patient To Recovery: No Disposition: Recovery Room Indications Davey is 63 years old. He is incarcerated. He reports a 2-day history of the spontaneous onset of severe right forearm pain swelling and redness. He reports no history of injury. He has not had previous infections. He came to the emergency room where he was admitted and placed on IV antibiotics. He does report that since admission the arm is felt better and there is less redness and other symptoms.Preoperative forearm radiographs showed no air in the soft tissues there was no fracture or dislocation positive swelling. Description of Procedure Informed consent. Patient identified. He identified the procedure site as the right forearm. We marked the area of maximal tenderness which corresponded to the area of questionable fluctuance. This may have been the area identified on the ultrasound. Preprocedural timeout was performed. He received a preop dose of IV antibiotics and is already currently on vancomycin and Unasyn. The examination demonstrated an area of fluctuance over the posterolateral aspect of the right forearm about 2 cm wide and 4 to 5 cm long. There was surrounding a induration and erythema with no open wound or break in the skin. The skin was noted to be dry. He was positioned supine on the OR table with the right arm on a hand table. A tourniquet on the right arm. The arm was scrubbed and then prepped and draped in the usual sterile fashion. DVT prophylaxis with mechanical devices intraoperatively. Postoperatively mobility. There was swelling of the arm but not tense. We started with a 5 to 6 cm longitudinal incision over the area of fluctuance. There was profuse bleeding secondary to reactive hyperemia which was controlled with electrocautery. Upon incising the skin and subcutaneous tissues no purulence was identified. Blunt dissection down the level of the fascia was performed and then when the fascia was opened immediately purulence appeared. A culture was obtained and sent for routine analysis. The fascia was opened longitudinally this would be overlying the extensor digitorum communis and extensor carpi ulnaris muscles. The purulence was noted to track proximally and distally and the surrounding muscle and fascia and particularly appeared unhealthy or necrotic. Also posterior to this the fascia appeared to be somewhat necrotic. This necessitated the extension of the incision distally and proximally for a total length eventually of 15 to 20 cm. The incisions were extended repeatedly as necessary until healthy tissue and fascia was encountered. The tourniquet was put up without exsanguinating the limb. An extensive debridement less than 20 cm of sharp excisional debridement using pickups and scissors and rongeur and nonexcisional debridement using curette was performed. Superficially at the center area of this in the muscle there was some hines muscular tissue which was debrided. Unhealthy fascia was debrided. This tracked posteriorly towards the ulna. The after mentioned muscles themselves were bluntly divided to express purulence which appeared to be within the muscle and below the fascia. The necrotic fascia extended more posteriorly and as this was being debrided some purulence was encountered more posteriorly towards the ulna. I used a hemostat to bluntly dissect between the skin and subcutaneous tissues down to the level of the olecranon bursa. No purulence was noted in this area. The subcutaneous fat as well as the fascia over the posterior compartment muscle was debrided. This debridement was performed circumferentially until healthy fascia was encountered. The muscles were compressed in order to milk out any hidden pockets of purulence of which none were noted. The fascia over the extensor carpi all naris and extensor digitorum tendons were opened from the elbow down almost to the wrist. The muscles in these compartments had minimal if any contractility although the color of the muscle was beefy red. There was some punctate bleeding and places. Obviously hines noncontractile muscle was debrided in the neighborhood of 5 to 10 cc of muscles. The ECR B and the ECRL and brachial radialis muscles were identified and the fascia overlying them was opened. These muscles and their fascia appeared healthy without evidence of infection or necrosis. They had normal contractility. The fascia was completely released the length of the complete apartment through the incision. Copious irrigation was performed several times using bulb syringe. Debridement was repeated until all unhealthy fascial tissue was removed. I was reluctant at this point to proceed with whole cell debridement of the after mentioned muscles. The tourniquet was let down and meticulous hemostasis was performed. The wound was dry. A black sponge wound VAC was then applied in the standard fashion and deployed without a leak. Arm sling. Wound VAC. Patient awakened from anesthesia without difficulty taken to the cover room in stable condition. There were no complications. I did take another culture which was of the more posterior area of purulence noted towards the ulna. The debrided fascia and muscle was sent for a specimen. There were no complications. Counts were correct and blood loss is estimated to be 50 cc. There was no one available to speak to at the conclusion the operation. Plan is to administer the wound VAC continue IV antibiotics. Potential consultation with tertiary care center hand and upper extremity specialist due to the muscle infection and potential need for muscular debridement.Could have been pyomyositis or infection involving the muscular layer that then caused the overlying fascia to necrosis. The patient may have developed a compartment syndrome or have nonviable muscle secondary to infection. I attest to the content of the Intraoperative Record and any orders documented therein. Any exceptions are noted below.
[2024-11-17] MEDS: KETOROLAC 30 MG/ML VIAL IV PRN (14:17)
[2024-11-17] MEDS ORDERED: NALOXONE HCL 0.4 MG/1 ML VIAL/CARP IV PRN (15:17)
[2024-11-17] MEDS ORDERED: MAGNESIUM HYDROXIDE SUSP 30 ML UDC PO PRN (15:17)
[2024-11-17] MEDS ORDERED: diphenhydrAMINE Capsule 25 MG CAP PO PRN (15:17)
[2024-11-17] MEDS ORDERED: ONDANSETRON INJ 2 MG/ML 2 ML VIAL IV PRN (15:17)
[2024-11-17] MEDS ORDERED: traMADol HCL 50 MG TABLET PO PRN (15:17)
[2024-11-17] MEDS ORDERED: METOCLOPRAMIDE HCL INJ 5 MG/ML 2 ML VIAL IV PRN (15:17)
[2024-11-17] MEDS ORDERED: bisacodyL 10 MG SUPP PR PRN (15:17)
[2024-11-17] MEDS ORDERED: ALUMINUM/MAGNESIUM SUSP 30 ML UDC PO PRN (15:17)
[2024-11-17] MEDS: LIDOCAINE 1% LOCAL 20 ML VIAL ONE (15:38)
[2024-11-17] MEDS: BUPIVACAINE 0.5 % 5 MG/1 ML MPF 30ML VIAL ONE (15:38)
[2024-11-17] MEDS: oxyCODONE HCL IR 5 MG TAB (IMMEDIATE RELEASE) PO PRN (16:17)
[2024-11-17] MEDS: KETOROLAC TROMETHAMINE 15 MG/ML VIAL IV PRN (16:18)
--- NOTE | 2024-11-17 16:58 | Anesthesiology Progress Note ---
Date of Service November 17, 2024 Anesthesia Post Procedure Vital Signs Vital Signs: Temp Pulse Pulse Pulse Resp BP BP 11/17/24 16:32 37.1 C 91 H 20 118/73 11/17/24 16:06 36.9 C 90 18 109/66 11/17/24 15:17 36.7 C 91 H 18 106/67 11/17/24 15:00 37.3 C 92 H 18 104/77 11/17/24 14:40 91 H 20 116/76 11/17/24 14:30 93 H 20 127/78 11/17/24 14:20 94 H 20 124/74 11/17/24 14:10 93 H 20 127/75 11/17/24 14:00 92 H 18 118/69 11/17/24 13:54 36.1 C L 97 H 18 150/73 H 11/17/24 07:20 11/17/24 07:20 36.7 C 104 H 18 137/76 11/17/24 04:00 36.8 C 101 H 18 120/69 11/16/24 23:00 113 H 11/16/24 22:00 11/16/24 22:00 36.9 C 109 H 20 122/72 11/16/24 21:36 11/16/24 20:15 108 H 20 119/71 11/16/24 18:25 36.8 C 101 H 24 127/84 11/16/24 17:24 86 18 108/73 Pulse Ox O2 Del Method O2 Flow Rate 11/17/24 16:32 92 Room Air 11/17/24 16:06 94 Nasal Cannula 2 11/17/24 15:17 94 Nasal Cannula 2 11/17/24 15:00 92 Nasal Cannula 2 11/17/24 14:40 92 Nasal Cannula 4 11/17/24 14:30 93 Nasal Cannula 4 11/17/24 14:20 93 Oxymask 4 11/17/24 14:10 95 Oxymask 4 11/17/24 14:00 97 Oxymask 12 11/17/24 13:54 94 Oxymask 12 11/17/24 07:20 Room Air 11/17/24 07:20 92 Room Air 11/17/24 04:00 93 Nasal Cannula 2 11/16/24 23:00 11/16/24 22:00 Nasal Cannula 2 11/16/24 22:00 92 Nasal Cannula 2 11/16/24 21:36 Nasal Cannula 2 11/16/24 20:15 93 Nasal Cannula 11/16/24 18:25 96 Nasal Cannula 2 11/16/24 17:24 94 Nasal Cannula 2 Pain Intensity Right Arm: Pain Intensity: 4 Transfer of Care Handoff Completed per policy Notes Mental Status: alert / awake / arousable Patient Amnestic to Procedure: Yes Nausea / Vomiting: adequately controlled Pain: adequately controlled Airway Patency, RR, SpO2: stable & adequate BP & HR: stable & adequate Hydration State: stable & adequate Anesthetic Complications: no major complications apparent
[2024-11-17] MEDS: ACETAMINOPHEN 325 MG TAB PO PRN (20:03)
[2024-11-17] MEDS: TRANEXAMIC ACID / 0.7% NACL 1,000 MG/100 ML BAG IV SCH (20:05)
[2024-11-17] MEDS: DOCUSATE SODIUM 100 MG CAP PO SCH (20:20)
[2024-11-17] MEDS: SENNA 8.6 MG TAB PO SCH (20:20)
[2024-11-17] MEDS: VANCOMYCIN HCL 1,250 MG in SODIUM CHLORIDE 0.9% 250 ML IV SCH (20:23)
--- NOTE | 2024-11-17 22:42 | Hospitalist Progress Note ---
Date of Service November 17, 2024 Assessment & Plan (1) Sepsis: Plan: Lactate within normal limits, no hypotension, does not meet criteria for fluid bolus however 2 L normal saline bolus given in the ER regardless, no need for additional fluids Source = right arm cellulitis Empiric antibiotics with vancomycin and Zosyn Follow-up blood cultures S/P I and D by Dr. Frank on 11/17 awaiting cultures from fluid fluctuance noted initially on U/S vitals stable. cultures pending. (2) Right arm cellulitis: Plan: Failed outpatient treatment with IM ceftriaxone and p.o. Bactrim S/P I and D Reportedly already improving after vancomycin and Zosyn started in the emergency room Elevate extremity, continue antibiotics as above Plan VTE prophylaxis - Lovenox 40 mg subcu daily Diet - regular Disposition - admit to med/tele Admission and Anticipated Discharge Date Admission Date: November 16, 2024 Subjective Patient reports no new symptoms. He feels well, tolerated I and D. Physical Exam Constitutional: WD/WN, vitals as above Respiratory: normal respiratory effort, lungs clear to auscultation Cardiovascular: Rate/Rhythm: regular rhythm and + tachycardic Heart Sounds: no murmur Extremities: normal capillary refill Gastrointestinal (Abdomen): normal bowel sounds, soft, nontender, no hepatosplenomegaly Results & Data Results & Data Vital Signs (Past 12 Hours) Vital Signs Temp Pulse Pulse Pulse Resp BP BP 11/17/24 19:21 36.3 C L 81 18 103/67 11/17/24 17:47 36.5 C 90 20 117/72 11/17/24 17:01 82 11/17/24 16:47 37.1 C 91 H 18 118/73 11/17/24 16:32 37.1 C 91 H 20 118/73 11/17/24 16:06 36.9 C 90 18 109/66 11/17/24 15:17 36.7 C 91 H 18 106/67 11/17/24 15:00 37.3 C 92 H 18 104/77 11/17/24 14:40 91 H 20 116/76 11/17/24 14:30 93 H 20 127/78 11/17/24 14:20 94 H 20 124/74 11/17/24 14:10 93 H 20 127/75 11/17/24 14:00 92 H 18 118/69 02/23/25 13:54 36.1 C L 97 H 18 150/73 H Pulse Ox O2 Del Method O2 Flow Rate 11/17/24 19:21 91 Room Air 11/17/24 17:47 90 Room Air 11/17/24 17:01 11/17/24 16:47 92 Room Air 11/17/24 16:32 92 Room Air 11/17/24 16:06 94 Nasal Cannula 2 11/17/24 15:17 94 Nasal Cannula 2 11/17/24 15:00 92 Nasal Cannula 2 11/17/24 14:40 92 Nasal Cannula 4 11/17/24 14:30 93 Nasal Cannula 4 11/17/24 14:20 93 Oxymask 4 11/17/24 14:10 95 Oxymask 4 11/17/24 14:00 97 Oxymask 12 11/17/24 13:54 94 Oxymask 12 PG Care Time/CCT Total # of Minutes Spent Total Time Spent with Patient: Total time spent is greater than 50% in coordination of care (as documented) at patient's floor/unit and/or counseling patient: Coding Level of Care Code 17634 SUB INP/OBS CARE 3/50MIN Diagnoses Sepsis A41.9 Right arm cellulitis L03.113
[2024-11-18 03:46] VITALS: O2SAT 92
[2024-11-18 07:33] LABS: Hematocrit (blood only) 37.8 % (42.0-52.0); Hemoglobin 12.6 g/dl (14.0-18.0); Mean Corpuscular Hemoglobin 29.3 pg (25.0-34.0); Mean Corpuscular Hgb Conc 33.3 g/dL (32.0-36.0); Mean Corpuscular Volume 87.9 fL (80.0-100.0); Mean Platelet Volume 9.5 fL (9.4-12.4); Platelet Count 238 K/uL (130-400); RDW Coefficient of Variation 13.7 % (11.5-14.5); RDW Standard Deviation 43.9 fL (36.4-46.3); White Blood Count 15.68 K/ul (4.8-10.8)
[2024-11-18 08:25] VITALS: BP 137/76; RESP 18; TEMP 98.1
[2024-11-18] MEDS ORDERED: VANCOMYCIN LEVEL ONE (08:30)
--- NOTE | 2024-11-18 08:41 | Pharmacy Report ---
Pharmacy PK ABX Note - Date of Service November 18, 2024 - Assessment and Plan Assessment * 63 year old incarcerated M receiving pip/tazo and vancomycin for treatment of sepsis 2nd cellulitis. 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 Unknown baseline, but not likely significant BRIJESH. OK to schedule vancomycin for now and will follow SCr. Plan 11/18/24 random level of vancomycin is low (8.5) vancomycin dose was increased to 1500mg q12h. Regimen is predicted to achieve target AUC/DECLAN of 400-600 mg/L.hr 11/16/24 Vancomycin * Loading dose: 1750 mg IV x 1 * Maintenance dose: 1000 mg IV every 12 hours * Regimen is predicted to achieve target AUC/DECLAN of 400-600 mg/L.hr * Random level ordered for: 11/18 w AM labs Pharmacy will continue to follow and will adjust dose/frequency as necessary. Thank you. Pharmacy has transitioned to AUC monitoring for vancomycin. AUC/DECLAN is the preferred PK/PD target and is associated with decreased risk of nephrotoxicity compared to traditional trough targets.
[2024-11-18 08:46] LABS: BUN Creatinine Ratio 17.3 (10-20); Creatinine Clr Calc Pharmacy 122.2 ml/min; Potassium 4.1 mmol/L (3.5-5.1)
[2024-11-18] MEDS: VANCOMYCIN HCL 1,500 MG in SODIUM CHLORIDE 0.9% 500 ML IV SCH (09:53)
[2024-11-18] MEDS: MULTIVITAMIN TAB PO SCH (09:55)
[2024-11-18] MEDS: VANCOMYCIN LEVEL ONE (09:55)
--- NOTE | 2024-11-18 11:10 | Orthopedic Progress Note ---
Date of Service November 18, 2024 Assessment & Plan (1) Right arm cellulitis: Plan: Discussed surgical findings with patient. Extensive fascial necrosis and the possibility of extensive muscle necrosis which may require further surgical intervention and debridement. Etiology is not clear. Blood cultures are negative. The OR cultures are pending. In my opinion given the potential need for further surgical intervention including large-scale debridement of potentially necrotic muscle I have recommended the this patient be transferred to a tertiary care Medical Center. Patient is in agreement. I have spoken with Dr. Kelly. I have made contact with [facility] Dr. Carreon is on- call and he is excepted the the patient. Continue the IV antibiotics and wound VAC. Follow-up on cultures. (2) Abscess: Admission and Anticipated Discharge Date Admission Date: November 16, 2024 Subjective Patient reports no problems. He is feeling better. His pain is well- controlled. Physical Exam Physical Exam: Radial pulses 1+. The hand is not swollen. He has intact sensation throughout the lower arm and hand. Median radial and ulnar motor and sensory functions are intact. He has full 4+ to 5- out of 5 strength with all functions including thumb and finger extension wrist extension gripping finger abduction and palmar abduction of his thumb. The wound VAC is in place. Erythema is dissipating. There is however an area of tenderness posterior mid forearm where there is more intense erythema. The olecranon is not tender but it is red. He has full movement of his fingers good range of motion of his wrist. At least 45 to 60 degrees of forearm rotation in both pronation and supination and his elbow motion is 0/30/120 without significant pain. He has 5- out of 5 elbow flexion and extension strength. Results & Data Vital Signs (Past 12 Hours) Vital Signs Temp Pulse Pulse Resp BP Pulse Ox O2 Del Method 11/18/24 07:50 36.7 C 104 H 18 137/76 92 Room Air 11/18/24 06:00 61 11/18/24 03:45 36.3 C L 62 16 108/67 92 Room Air 11/17/24 23:17 36.6 C 66 18 104/66 94 Room Air Laboratory Results Laboratory Results WBC 15.68 K/ul (4.8-10.8) H 11/18/24 07:06 RBC 4.30 M/uL (4.70-6.10) L 11/18/24 07:06 Hgb 12.6 g/dl (14.0-18.0) L 11/18/24 07:06 Hct 37.8 % (42.0-52.0) L 11/18/24 07:06 MCV 87.9 fL (80.0-100.0) 11/18/24 07:06 MCH 29.3 pg (25.0-34.0) 11/18/24 07:06 MCHC 33.3 g/dL (32.0-36.0) 11/18/24 07:06 RDW Std Deviation 43.9 fL (36.4-46.3) 11/18/24 07:06 RDW Coeff of Kemi 13.7 % (11.5-14.5) 11/18/24 07:06 Plt Count 238 K/uL (130-400) 11/18/24 07:06 MPV 9.5 fL (9.4-12.4) 11/18/24 07:06 Immature Gran % (Auto) 0.8 % 11/17/24 05:42 Neut % (Auto) 86.0 % 11/17/24 05:42 Lymph % (Auto) 6.8 % 11/17/24 05:42 [place] % (Auto) 5.9 % 11/17/24 05:42 Eos % (Auto) 0.1 % 11/17/24 05:42 Baso % (Auto) 0.4 % 11/17/24 05:42 Neut # (Auto) 11.61 K/uL (1.40-6.50) H 11/17/24 05:42 Lymph # (Auto) 0.92 K/uL (1.20-3.40) L 11/17/24 05:42 [place] # (Auto) 0.80 K/uL (0.11-0.59) H 11/17/24 05:42 Eos # (Auto) 0.01 K/uL (0.00-0.50) 11/17/24 05:42 Baso # (Auto) 0.05 K/uL (0.00-0.20) 11/17/24 05:42 Immature Gran # (Auto) 0.11 K/uL (0.01-0.20) 11/17/24 05:42 ESR 34 mm/hr (0-20) H 11/16/24 10:10 Sodium 137 mmol/L (136-145) 11/18/24 07:06 Potassium 4.1 mmol/L (3.5-5.1) 11/18/24 07:06 Chloride 106 mmol/L (98-107) 11/18/24 07:06 Carbon Dioxide 27 mmol/L (21-32) 11/18/24 07:06 Anion Gap 4 (3-11) 11/18/24 07:06 BUN 14 mg/dl (6-23) 11/18/24 07:06 Creatinine 0.81 mg/dl (0.6-1.4) 11/18/24 07:06 Est Cr Clr Drug Dosing 122.2 ml/min 11/18/24 07:06 eGFR 99.69 11/18/24 07:06 BUN/Creatinine Ratio 17.3 (10-20) 11/18/24 07:06 Glucose 112 mg/dl (70-99(Fasting)) H 11/18/24 07:06 Lactate 1.7 mmol/L (0.4-2.0) 11/16/24 10:10 Calcium 8.0 mg/dl (8.6-10.3) L 11/18/24 07:06 Magnesium 1.8 mg/dl (1.7-2.4) 11/16/24 10:10 Total Bilirubin 1.4 mg/dl (0.2-1.0) H 11/16/24 10:10 Direct Bilirubin 0.4 mg/dl (0-0.2) H 11/16/24 10:10 AST 36 U/L (13-39) 11/16/24 10:10 ALT 30 U/L (7-52) 11/16/24 10:10 Alkaline Phosphatase 91 U/L (34-104) 11/16/24 10:10 Troponin I High Sens 6.4 pg/ml (0-20) 11/16/24 10:10 C-Reactive Protein 15.87 mg/dl (0-0.5) H 11/16/24 10:10 Total Protein 7.2 gm/dl (6.0-8.3) 11/16/24 10:10 Albumin 3.7 gm/dl (3.4-5.0) 11/16/24 10:10 Procalcitonin 0.34 ng/ml (0-0.5) 11/16/24 10:10 Urine Color Dark Yellow 11/17/24 09:01 Urine Appearance Clear (Clear) 11/17/24 09:01 Urine pH 6.0 (4.5-7.5) 11/17/24 09:01 Ur Specific [place] 1.017 (1.000-1.030) 11/17/24 09:01 Urine Protein 1+ (Negative) H 11/17/24 09:01 Urine Glucose (UA) Negative (Negative) 11/17/24 09:01 Urine Ketones 1+ (Negative) H 11/17/24 09:01 Urine Blood Negative (Negative) 11/17/24 09:01 Urine Nitrite Negative (Negative) 11/17/24 09:01 Urine Bilirubin 1+ (Negative) H 11/17/24 09:01 Urine Urobilinogen Positive (Negative) H 11/17/24 09:01 Ur Leukocyte Esterase Negative (Negative) 11/17/24 09:01 Urine WBC (Auto) 0-5 /hpf (0-5) 11/17/24 09:01 Urine RBC (Auto) 0-2 /hpf (0-2) 11/17/24 09:01 U Hyaline Cast (Auto) 0-2 /lpf (0-2) 11/17/24 09:01 U Epithel Cells (Auto) 0-2 /hpf (0-2) 11/17/24 09:01 Urine Bacteria (Auto) None Seen (None Seen) 11/17/24 09:01 Nasal Screen MRSA (PCR) Negative (Negative) 11/16/24 21:25 Random Vancomycin 8.5 mcg/ml (10-20) L 11/18/24 07:06 Adenovirus (PCR) Not Detected (NotDetected) 11/16/24 10:40 B. pertussis DNA (PCR) Not Detected (NotDetected) 11/16/24 10:40 B.parapertussis DNA PCR Not Detected (NotDetected) 11/16/24 10:40 C. pneumoniae DNA (PCR) Not Detected (NotDetected) 11/16/24 10:40 Coronavirus OC43 (PCR) Not Detected (NotDetected) 11/16/24 10:40 Coronavirus HKU1 (PCR) Not Detected (NotDetected) 11/16/24 10:40 Coronavirus 229E (PCR) Not Detected (NotDetected) 11/16/24 10:40 SARS-CoV-2 (PCR) Not Detected (NotDetected) 11/16/24 10:40 Coronavirus NL63 (PCR) Not Detected (NotDetected) 11/16/24 10:40 Human Metapneumovir PCR Not Detected (NotDetected) 11/16/24 10:40 Influenza Type A (PCR) Not Detected (NotDetected) 11/16/24 10:40 Influenza Type B (PCR) Not Detected (NotDetected) 11/16/24 10:40 M. pneumoniae (PCR) Not Detected (NotDetected) 11/16/24 10:40 Parainfluenza 1 (PCR) Not Detected (NotDetected) 11/16/24 10:40 Parainfluenza 2 (PCR) Not Detected (NotDetected) 11/16/24 10:40 Parainfluenza 3 (PCR) Not Detected (NotDetected) 11/16/24 10:40 Parainfluenza 4 (PCR) Not Detected (NotDetected) 11/16/24 10:40 RSV (PCR) Not Detected (NotDetected) 11/16/24 10:40 Entero/Rhino (PCR) Not Detected (NotDetected) 11/16/24 10:40 Group A Strep (PCR) NOT DETECTED (NotDetected) 11/16/24 10:40 Impressions Elbow X-Ray 11/16/24 09:52 EXAM: Radiographs of the Right Elbow Complete 3 Views INDICATION: Twain TECHNIQUE: Frontal, lateral and oblique views of the right elbow. COMPARISON: No relevant prior studies available. FINDINGS: Bones/joints: No fracture, erosion or dislocation. Soft tissues: There is generalized periarticular soft tissue swelling. No soft tissue gas or radiopaque foreign body. IMPRESSION: There is generalized periarticular soft tissue swelling. No osseous abnormality. ACT 112: Negative or not required by law. Electronically signed by Rani Gonzalez 11-16-2024 10:54 AM [place]
--- NOTE | 2024-11-18 11:39 | Pharmacy Report ---
Pharmacy PK ABX Note - Date of Service November 18, 2024 - Assessment and Plan Assessment * 63 year old incarcerated M receiving pip/tazo and vancomycin for treatment of sepsis 2nd cellulitis. 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 Unknown baseline, but not likely significant BRIJESH. OK to schedule vancomycin for now and will follow SCr. Plan 11/18/24 random level of vancomycin is low (8.5) vancomycin dose was increased to 1500mg q12h. Regimen is predicted to achieve target AUC/DECLAN of 400-600 mg/L.hr 11/16/24 Vancomycin * Loading dose: 1750 mg IV x 1 * Maintenance dose: 1000 mg IV every 12 hours * Regimen is predicted to achieve target AUC/DECLAN of 400-600 mg/L.hr * Random level ordered for: 11/18 w AM labs Pharmacy will continue to follow and will adjust dose/frequency as necessary. Thank you. Pharmacy has transitioned to AUC monitoring for vancomycin. AUC/DECLAN is the preferred PK/PD target and is associated with decreased risk of nephrotoxicity compared to traditional trough targets.
--- NOTE | 2024-11-18 13:55 | Discharge Summary ---
Discharge Summary Date of Service November 18, 2024 Principal Dx & Hospital Course #1 = Principal Diagnosis (1) Sepsis: Lactate within normal limits, no hypotension, does not meet criteria for fluid bolus however 2 L normal saline bolus given in the ER regardless, no need for additional fluids Source = right arm cellulitis Empiric antibiotics with vancomycin and Zosyn Blood cultures negative for 48 hours S/P I and D by Dr. Chaves on 11/17 Surgical cultures Streptococcus anginosus with antibiotic sensitivities pending at this time. Dr. Chaves recommended transfer to a tertiary care center for possible muscle debridement. Transfer has been arranged to [facility]. (2) Right arm cellulitis: Failed outpatient treatment with IM ceftriaxone and p.o. Bactrim (3) Pyomyositis: (4) Abscess: Notes For Next Care Provider Patient care to be taken over by [facility] Medication Changes From Visit No changes to his chronic medications however he was on vancomycin and Zosyn during inpatient admission Admission HPI Per Admitting Provider Davey Nicole is a 63-year-old male who presents to the ER with right arm cellulitis. He reports symptoms started 2 days ago with fever, chills, erythema of his right mid forearm which subsequently spread to go beyond his elbow and his wrist. He notes is already improving since antibiotic started in the emergency room. No serious infections previously. No tenderness over his right elbow. He was started on Bactrim and ceftriaxone yesterday at the [facility] however despite this the erythema area spread therefore he was sent to the ER today. Discharge Exam Skin Erythema and swelling from elbow to wrist appears to be darker and minimally improved since admission. Wound VAC in place over surgical incision. Discharge Plan Discharge Items Patient Disposition: Transfer Acute Care Hospital Reason For Visit: SEPSIS, CELLULITIS Discharge Diagnosis: Sepsis, cellulitis, abscess, pyomyositis Activity: Resume your previous activity Non-emergency contact: Primary Care Provider Call non-emergency contact if: you have any medication questions and your symptoms worsen Follow-up/Referrals: Wandy BERGMAN [Primary Care Provider] - Diet: Regular Addtl Attending Provider Instructions: Davey Nicole is a 63-year-old male who was admitted to [facility] from November 16 to 2024 with fever, chills, right arm erythema and swelling. He was diagnosed with sepsis, cellulitis with an abscess and started on vancomycin and Zosyn. He underwent surgical incision and debridement on November [address] Chaves with the surgery concerning for muscle infection and potential need for muscle debridement. Dr. Chaves recommended transfer to [facility] for tertiary orthopedic treatment. Surgical wound culture is growing Streptococcus anginosus. Antibiotic sensitivities pending at time of discharge. Please see inpatient scanned sheets for current medications. Last vancomycin 1500 mg started at 9:53 AM. Last Zosyn 4.5 g at 9:54 AM. Pending Studies at Discharge: Yes (Surgical wound culture sensitivities) Stand-Alone Forms: My [facility] Skilled Items Patient informed of condition?: Yes DNR: No Discharge Level of Care: Other Communicable Disease: No Discharge Prognosis: Stable Lines: Peripheral IV Urinary Catheter: No Medications and DC Order Prescriptions: Continued cholecalciferol (vitamin D3) [Vitamin D3] 25 mcg (1,000 unit) Tablet 25 mcg PO DAILY Discontinued ceftriaxone [Rocephin] 1 gram Recon Soln 1 g IV BID sulfamethoxazole-trimethoprim [Bactrim DS] 800-160 mg Tablet 1 tab PO BID diclofenac sodium [Voltaren] 50 mg Tablet,Delayed Release (Dr/Ec) 50 mg PO TID Discharge Orders: Discharge Order (Routine); Ordered 11/18/24 Ordered By: Amador Kelly Admission Data Admit Date/Time: 11/16/24 11:16 Attending Provider: Amador Kelly Admit Provider: Amador Kelly Primary Care Provider: Wandy BERGMAN Other Providers: Amador Kelly; Lele Chaves Hospital Stay Data Consultations 11/16/24 11:15 ED Decision to Admit Stat 11/16/24 15:16 Consult Orthopedic Surgery Routine 11/18/24 13:08 Burn CD for patient Stat Procedures Performed Operation Date: 11/17/24 10:00 Actual Procedures p Irrigation and Debridment, Right Forearm with Application of Wound Vac(Right) - Lele Chaves MD Diagnostic Imagining Performed 11/16/24 10:37 US Right Lower Extremity Non-Vascular Complete INDICATION: Pain and edema. TECHNIQUE: Sonographic images labeled right forearm proximal forearm posterior provided. COMPARISON: No relevant prior studies available. FINDINGS: In the area scanned is a markedly complex fluid collection measuring 10.1 cm long by 1.6 cm AP by 3.2 cm transverse. There is minimal internal vascularity. IMPRESSION: In the area of interest is a large very complex fluid collection presumably reflecting abscess or hematoma. It is not liquefied. Pending Results Patient Have Any Pending Studies at Discharge: Yes (Surgical wound culture and sensitivities) Discharge Instructions Given to Patient (Per Discharging Provider) Davey Nicole is a 63-year-old male who was admitted to [facility] from November 16 to 2024 with fever, chills, right arm erythema and swelling. He was diagnosed with sepsis, cellulitis with an abscess and started on vancomycin and Zosyn. He underwent surgical incision and debridement on November [address] Chaves with the surgery concerning for muscle infection and potential need for muscle debridement. Dr. Chaves recommended transfer to [facility] for tertiary orthopedic treatment. Surgical wound culture is growing Streptococcus anginosus. Antibiotic sensitivities pending at time of discharge. Please see inpatient scanned sheets for current medications. Last vancomycin 1500 mg started at 9:53 AM. Last Zosyn 4.5 g at 9:54 AM. Total Time Total Time Spent Total Time Spent (In Minutes): 40 Coding Level of Care Code 18731 INP/OBS DISCH >30 MIN Diagnoses Sepsis A41.9 Right arm cellulitis L03.113 Pyomyositis M60.009 Abscess L02.91
[2024-11-18 14:08] VITALS: PULSE 90
== END 2024-11-18 15:30 | disposition short-term general hospital (02) | DRG 854 ==
LOC: ED 09:35 → SUATTDRO 11:16 → EDINP 11:16 → 2W 21:32

== ENCOUNTER 2024-11-21 10:14 | Inpatient (IN) ==
[2024-11-21 11:52] LABS: Hematocrit (blood only) 41.7 % (42.0-52.0); Hemoglobin 13.9 g/dl (14.0-18.0); Mean Corpuscular Hgb Conc 33.3 g/dL (32.0-36.0); Mean Corpuscular Volume 87.1 fL (80.0-100.0); Mean Platelet Volume 9.3 fL (9.4-12.4); Platelet Count 360 K/uL (130-400); RDW Coefficient of Variation 13.7 % (11.5-14.5); RDW Standard Deviation 42.8 fL (36.4-46.3); Red Blood Count 4.79 M/uL (4.70-6.10); White Blood Count 10.35 K/ul (4.8-10.8)
[2024-11-21 12:04] LABS: Albumin Globulin Ratio 0.9 (0.9-2); BUN Creatinine Ratio 11.6 (10-20); Bilirubin,Total 0.4 mg/dl (0.2-1.0); Calcium 8.6 mg/dl (8.6-10.3); Creatinine Clr Calc Pharmacy 113.7 ml/min; Globulin 3.5 gm/dl (2.5-4.0); Magnesium 2.1 mg/dl (1.7-2.4); Potassium 3.9 mmol/L (3.5-5.1); Total Protein 6.5 gm/dl (6.0-8.3)
--- NOTE | 2024-11-21 12:34 | Emergency Department Note ---
Impression & Plan Right arm cellulitis, Diarrhea ED Provider Note NAME: HUMPHREY [id number] HOLLIE AGE: 64 SEX: M : 1960 ARRIVES VIA: Walk-In INFORMANT: Patient, Nursing report ED PROVIDER(S): Omar Rogers MD CHIEF COMPLAINT: Fever, diarrhea, recent right forearm wound MEDICAL DECISION MAKING: Patient presents due to concern for fever. Patient with recent cellulitis and surgical treatment of the right forearm. Evaluation of the wound appears healthy and well-appearing but does have some erythema proximal to the wound. No obvious drainage or crepitus. Do not believe that this would likely require any surgical treatment at this time. Given the patient's fever even on current antibiotics per review would likely treat the patient's prior cultures patient did have broad-spectrum antibiotics given blood cultures IV fluids. I did speak with the on-call orthopedic service as well as the hospitalist service. Orthopedics also communicated with the patient surgeon of record down to [facility]. Believe the patient would benefit from inpatient treatment but does not require transfer. Patient was admitted by the medicine service. Discussion w/ other healthcare providers: SONYA Gonzalez PA-C and Dr. Maldonado orthopedics Dr. Lanier inpatient medicine service Prior /Outside records reviewed: I reviewed part of a discharge summary from Dr. Kelly from November 18. Patient with right arm cellulitis status post I&D by Dr. Chaves on November 17 surgical cultures showed Streptococcus anginosus. Orthopedics recommended transfer to tertiary care for possible muscle debridement. Differential diagnosis: Cellulitis, abscess, MRSA infection, DVT, necrotizing fasciitis, dermatitis, drug eruption, allergic reaction, as well as other pathologies were considered. Diagnostics, as interpreted by me: ECG: Normal sinus rhythm, rate of 64, normal intervals, left axis deviation no ST elevations. Cardiac monitoring: An order was placed for continuous cardiac monitoring. The monitor shows a rate of 67 with sinus rhythm. Patient was placed on pulse oximetry Medical decision rules: None Imaging studies: I informally interpreted the patient's chest x-ray does not show evidence of obvious pneumonia or pneumothorax slight elevation right hemidiaphragm with formal report to follow. HPI: Patient presents due to concern for fever. Patient reportedly developed fever just this morning and was referred here for further evaluation treatment. The patient did have a recent admission where he had a right forearm cellulitis status post I&D subsequent transfer to [place] for possible debridement. Patient has been on [facility] at [facility] [place] [facility]. He is currently at [facility]. Patient states that he does have some pain to the arm and noticed some swelling today. Patient denies any head or neck pain. No cough. Patient reports he has been having diarrhea about an episode every hour. He states he has been compliant with his medications that he has been prescribed. PAST MEDICAL HISTORY: See Below PAST SURGICAL HISTORY: See Below SOCIAL HISTORY: See Below HOME MEDICATIONS: See Below ALLERGIES: See Below VITALS: See Below PHYSICAL EXAMINATION: GENERAL: NAD, non-toxic. Wearing glasses. EYE EXAM: Normal conjunctiva. PERRL, no anisocoria and EOM's grossly intact w/o pain. OROPHARYNX: Moist mucus membranes, poor dentition. NECK: Trachea midline, no stridor. Supple, no nuchal rigidity, no adenopathy, non-tender. No signs of meningismus. FROM of the neck with good chin to chest and neck extension. LUNGS: Clear to auscultation. Normal chest wall mechanics. HEART: NSR, no MRG. ABDOMEN: Abdomen soft, non-tender, no masses, no rebound or guarding. BACK: No CVA TTP. SKIN: No rashes and no bruising. UPPER EXTREMITIES: Packed wound over the lateral aspect of the right forearm, with packing removed underlying tissue appears healthy. No purulent drainage noted or expressed. No crepitus. Swelling noted in the right hand compared to the left good radial pulse no obvious crepitus. Erythema proximal to the incisional site without fluctuance or drainage. LOWER EXTREMITIES: Grossly normal, no edema. NEURO EXAM: A&O x3, cranial nerves II-XII grossly intact, normal speech, moves all 4 extremities. 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 Beliefs That Will Affect Care: None Current Living Situation: Other Current Living Situation Comment: [facility] Other Information That Helps Us Care for You: No Feels Safe at Home: Yes Safety Concerns: Feels Safe At This Time Assistive Devices: Glasses Allergies Allergies Allergy/AdvReac Type Severity Reaction Status Date / Time No Known Allergies Allergy Unverified 11/16/24 11:25 Home Meds Home Medications Medication Instructions Recorded Confirmed cholecalciferol (vitamin D3) 25 25 mcg PO DAILY 11/16/24 11/21/24 mcg (1,000 unit) tablet (Vitamin D3) acetaminophen 500 mg tablet 1,000 mg PO TID PRN Pain 11/21/24 11/21/24 amoxicillin 875 mg-potassium 1 tab PO BID 11/21/24 11/21/24 clavulanate 125 mg tablet ibuprofen 600 mg tablet 600 mg PO TID PRN Pain 11/21/24 11/21/24 Results & Data (ED) Vital Signs Vital Signs - 24 hr 11/21/24 10:47 11/21/24 14:30 Temperature 37.7 C H Temperature Source Oral Pulse Rate 64 68 Pulse Rhythm Regular Pulse Strength Normal Respiratory Rate 18 24 Respiratory Effort / Characteristics Non-Labored Spontaneous Respiratory Depth Normal Respiratory Pattern Regular Blood Pressure 162/91 H 135/72 Blood Pressure Mean 114 90 Blood Pressure Position Sitting Pulse Oximetry 98 94 Oxygen Delivery Method Room Air Sepsis Recent Fever Within 48 Hours Yes Sepsis New/Unexplained Change in Mental Status No Sepsis Action Taken by Nursing No Action Required Home Medications Current Medication List: was personally reviewed by me Laboratory Data Attestation: I reviewed the patient's lab results. 11/21/24 11:10 11/21/24 11:10 Lab Results 11/21/24 11/21/24 Range/Units 11:10 13:31 WBC 10.35 (4.8-10.8) K/ul RBC 4.79 (4.70-6.10) M/uL Hgb 13.9 L (14.0-18.0) g/dl Hct 41.7 L (42.0-52.0) % MCV 87.1 (80.0-100.0) fL MCH 29.0 (25.0-34.0) pg MCHC 33.3 (32.0-36.0) g/dL RDW Std Deviation 42.8 (36.4-46.3) fL RDW Coeff of Kemi 13.7 (11.5-14.5) % Plt Count 360 (130-400) K/uL MPV 9.3 L (9.4-12.4) fL Immature Gran % (Auto) 2.5 % Neut % (Auto) 68.7 % Lymph % (Auto) 20.2 % [place] % (Auto) 4.5 % Eos % (Auto) 3.2 % Baso % (Auto) 0.9 % Neut # (Auto) 7.11 H (1.40-6.50) K/uL Lymph # (Auto) 2.09 (1.20-3.40) K/uL [place] # (Auto) 0.47 (0.11-0.59) K/uL Eos # (Auto) 0.33 (0.00-0.50) K/uL Baso # (Auto) 0.09 (0.00-0.20) K/uL Immature Gran # (Auto) 0.26 H (0.01-0.20) K/uL PT 10.5 (9.0-12.0) Seconds INR 1.0 (0.9-1.1) APTT 25 (21-31) Seconds PTT Ratio 0.9 Sodium 142 (136-145) mmol/L Potassium 3.9 (3.5-5.1) mmol/L Chloride 110 H (98-107) mmol/L Carbon Dioxide 26 (21-32) mmol/L Anion Gap 6 (3-11) BUN 10 (6-23) mg/dl Creatinine 0.86 (0.6-1.4) mg/dl Est Cr Clr Drug Dosing 113.7 ml/min eGFR 97.29 BUN/Creatinine Ratio 11.6 (10-20) Glucose 98 (70-99(Fasting)) mg/dl Lactate 1.5 1.2 (0.4-2.0) mmol/L Calcium 8.6 (8.6-10.3) mg/dl Magnesium 2.1 (1.7-2.4) mg/dl Total Bilirubin 0.4 (0.2-1.0) mg/dl AST 27 (13-39) U/L ALT 25 (7-52) U/L Alkaline Phosphatase 66 (34-104) U/L Troponin I High Sens 5.6 (0-20) pg/ml Total Protein 6.5 (6.0-8.3) gm/dl Albumin 3.0 L (3.4-5.0) gm/dl Globulin 3.5 (2.5-4.0) gm/dl Albumin/Globulin Ratio 0.9 (0.9-2) Procalcitonin 0.12 (0-0.5) ng/ml Administered Medications Discontinued Medications Acetaminophen (Acetaminophen 500 Mg Tab) 1,000 mg PO NOW STA Stop: 11/21/24 13:13 Last Admin: 11/21/24 13:31 Dose: 1,000 mg Documented By: IRVIN Sodium Chloride (Nss) 1,000 mls @ 999 mls/hr IV .Q1H1M ONE Stop: 11/21/24 14:12 Last Infusion: 11/21/24 14:25 Dose: Infused Documented By: Admin: 11/21/24 13:32 Dose: 999 mls/hr Documented By: IRVIN Vancomycin HCl 2,500 mg/ (Sodium Chloride) 550 mls @ 200 mls/hr IV NOW ONE Stop: 11/21/24 16:01 Last Admin: 11/21/24 14:49 Dose: 200 mls/hr Documented By: IRVIN Piperacillin Sod/Tazobactam Sod (Zosyn) 4.5 gm in 100 mls @ 200 mls/hr IV NOW ONE; Protocol Stop: 11/21/24 13:46 Last Infusion: 11/21/24 14:25 Dose: Infused Documented By: Admin: 11/21/24 13:32 Dose: 200 mls/hr Documented By: IRVIN Imaging Data Radiologist's Impression: Chest X-Ray 11/21/24 10:49 XR chest 1V not portable CLINICAL HISTORY: Sepsis COMPARISON STUDY: 11/16/2024 FINDINGS: Heart size and pulmonary vasculature are normal. There is stable mild blunting of the left costophrenic angle. No other consolidation or pleural effusion. No pneumothorax. IMPRESSION: No acute findings. ACT 112: Negative or not required by law. Electronically signed by: Yung Ledbetter M.D. 11/21/2024 1:11 PM Discharge Plan Visit Data Chief Complaint: Illness Stated Complaint: FEVER, DIARRHEA, WOUND INFECTION ED Provider: Omar Rogers Discharge Problem: Right arm cellulitis, Diarrhea Patient Disposition: Admitted As Inpatient Discharge Instructions Interventions: ED Discharge Assessment Last Done: 11/21/24 16:43 Discharge Problem: Diarrhea Qualifiers: Diarrhea type: unspecified type Qualified Code(s): R19.7 - Diarrhea, unspecified
[2024-11-21 12:38] LABS: Troponin I High Sensitivity 5.6 pg/ml (0-20)
[2024-11-21 12:46] LABS: Basophils # (auto) 0.09 K/uL (0.00-0.20); Basophils % (auto) 0.9 %; Eosinophils # (auto) 0.33 K/uL (0.00-0.50); Eosinophils % (auto) 3.2 %; Immature Granulocytes # (auto) 0.26 K/uL (0.01-0.20); Immature Granulocytes % (auto) 2.5 %; Lymphocytes # (auto) 2.09 K/uL (1.20-3.40); Lymphocytes % (auto) 20.2 %; Monocytes # (auto) 0.47 K/uL (0.11-0.59); Monocytes % (auto) 4.5 %; Neutrophils # (auto) 7.11 K/uL (1.40-6.50); Neutrophils % (auto) 68.7 %
[2024-11-21 12:54] LABS: Partial Thromboplastin Ratio 0.9; Partial Thromboplastin Time 25 Seconds (21-31); Prothrombin Time 10.5 Seconds (9.0-12.0)
--- NOTE | 2024-11-21 13:12 | XRay Report ---
XR chest 1V not portable CLINICAL HISTORY: Sepsis COMPARISON STUDY: 11/16/2024 FINDINGS: Heart size and pulmonary vasculature are normal. There is stable mild blunting of the left costophrenic angle. No other consolidation or pleural effusion. No pneumothorax. IMPRESSION: No acute findings. ACT 112: Negative or not required by law. Electronically signed by: Yung Ledbetter M.D. 11/21/2024 1:11 PM
[2024-11-21] MEDS ORDERED: VANCOMYCIN CONSULT ACTIVE PRN ×2 (13:17→14:39)
[2024-11-21] MEDS: ACETAMINOPHEN 500 MG TAB PO STA (13:31)
[2024-11-21] MEDS: PIPERACILLIN/TAZOBACTAM 4.5 GM/100 ML BAG IV ONE (13:32)
[2024-11-21] MEDS: SODIUM CHLORIDE 0.9% 1,000 ML IV ONE (13:32)
--- NOTE | 2024-11-21 14:34 | Orthopedic Consultation ---
Date of Consultation November 21, 2024 Assessment & Plan (1) Right arm cellulitis: I took a picture of the patient's wound and send it to Dr. Carreon in [place] via [employer] text. He recommended switching him to a wet-to-dry dressing tomorrow and removing the iodoform packing. Patient is being admitted by medicine service for diarrhea and they plan on working him up for C. difficile. Patient is currently receiving piperacillin intravenously. His pain is well-controlled. A light Kerlix dressing was applied over the surgical site. Supervising Physician Co-Signing Physician Notes I, Dr. Maldonado, saw and examined the patient. I discussed the management with my PA. I reviewed my PAs note and agree with the documented findings and attest to completing the substantive portion of medical decision making and plan of care I developed. Continue care per primary service. Will discuss with Dr. Chaves. History of Present Illness Reason for Consultation: Right Arm Wound Requesting Physician: Dr. Maldonado covering for Dr. Chaves History of Present Illness This 64-year-old inmate seen in the emergency department this afternoon for follow-up of irrigation debridement of a right forearm abscess. Initial I&D was performed by Dr. Chaves on November 17. Patient was then transferred to [facility] where he underwent another irrigation debridement by Dr. Carreon on November 19. Patient states that this morning he developed diarrhea, low-grade fever and chills. He is brought to the emergency department by present staff. We were consulted to evaluate his wound. Patient denies chest pain, shortness of breath, nausea or vomiting or numbness or tingling in his right upper extremity. Allergies Allergy/AdvReac Type Severity Reaction Status Date / Time No Known Allergies Allergy Unverified 11/16/24 11:25 Home Medications Medication Instructions Recorded Confirmed Type cholecalciferol (vitamin D3) 25 25 mcg PO DAILY 11/16/24 11/21/24 History mcg (1,000 unit) tablet (Vitamin D3) acetaminophen 500 mg tablet 1,000 mg PO TID PRN Pain 11/21/24 11/21/24 History amoxicillin 875 mg-potassium 1 tab PO BID 11/21/24 11/21/24 History clavulanate 125 mg tablet ibuprofen 600 mg tablet 600 mg PO TID PRN Pain 11/21/24 11/21/24 History Patient History Medical History Arthritis of knee Surgical History History of hand surgery Left hand surgery from prior cut Social History Smoking Status: Never smoker Second Hand Exposure: No; Do You Dip or Chew Tobacco: No; Tobacco Cessation Education Requested by Patient: No Hx Alcohol Use: No Hx Substance Use: No Preferred Language: Citizen Of [place] Communication Ability: Effective Archival Records Clerk Required: No Beliefs That Will Affect Care: None Current Living Situation: Other Current Living Situation Comment: [facility] Other Information That Helps Us Care for You: No Feels Safe at Home: Yes Safety Concerns: Feels Safe At This Time Assistive Devices: None Review of Systems Review of Systems: All systems reviewed & are unremarkable except as noted in Subjective Physical Exam Physical Exam: Right upper extremity: Dressing was removed from the patient's right forearm. Iodoform packing was noted in the open wound area. Sutures are intact proximally and distally. There is mild erythema and edema but no warmth, drain age or ecchymosis. Patient is able to reach terminal flexion and extension of his elbow. He he has some limitations with wrist flexion and extension due to some swelling in his hand. His peripheral pulses are 2+. He is able to detect light sensation to touch over the pads of all digits. He is neurovascularly intact in the right upper extremity. Respiratory: normal respiratory effort, lungs clear to auscultation Cardiovascular: RRR, no murmur, no edema Gastrointestinal (Abdomen): normal bowel sounds, soft, nontender, no hepatosplenomegaly Results & Data Vital Signs (Past 12 Hours) Vital Signs Temp Pulse Resp BP Pulse Ox O2 Del Method 11/21/24 10:47 37.7 C H 64 18 162/91 H 98 Room Air Diagnostic Findings Laboratory Results WBC 10.35 K/ul (4.8-10.8) 11/21/24 11:10 RBC 4.79 M/uL (4.70-6.10) 11/21/24 11:10 Hgb 13.9 g/dl (14.0-18.0) L 11/21/24 11:10 Hct 41.7 % (42.0-52.0) L 11/21/24 11:10 MCV 87.1 fL (80.0-100.0) 11/21/24 11:10 MCH 29.0 pg (25.0-34.0) 11/21/24 11:10 MCHC 33.3 g/dL (32.0-36.0) 11/21/24 11:10 RDW Std Deviation 42.8 fL (36.4-46.3) 11/21/24 11:10 RDW Coeff of Kemi 13.7 % (11.5-14.5) 11/21/24 11:10 Plt Count 360 K/uL (130-400) 11/21/24 11:10 MPV 9.3 fL (9.4-12.4) L 11/21/24 11:10 Immature Gran % (Auto) 2.5 % 11/21/24 11:10 Neut % (Auto) 68.7 % 11/21/24 11:10 Lymph % (Auto) 20.2 % 11/21/24 11:10 [place] % (Auto) 4.5 % 11/21/24 11:10 Eos % (Auto) 3.2 % 11/21/24 11:10 Baso % (Auto) 0.9 % 11/21/24 11:10 Neut # (Auto) 7.11 K/uL (1.40-6.50) H 11/21/24 11:10 Lymph # (Auto) 2.09 K/uL (1.20-3.40) 11/21/24 11:10 [place] # (Auto) 0.47 K/uL (0.11-0.59) 11/21/24 11:10 Eos # (Auto) 0.33 K/uL (0.00-0.50) 11/21/24 11:10 Baso # (Auto) 0.09 K/uL (0.00-0.20) 11/21/24 11:10 Immature Gran # (Auto) 0.26 K/uL (0.01-0.20) H 11/21/24 11:10 PT 10.5 Seconds (9.0-12.0) 11/21/24 11:10 INR 1.0 (0.9-1.1) 11/21/24 11:10 APTT 25 Seconds (21-31) 11/21/24 11:10 PTT Ratio 0.9 11/21/24 11:10 Sodium 142 mmol/L (136-145) 11/21/24 11:10 Potassium 3.9 mmol/L (3.5-5.1) 11/21/24 11:10 Chloride 110 mmol/L (98-107) H 11/21/24 11:10 Carbon Dioxide 26 mmol/L (21-32) 11/21/24 11:10 Anion Gap 6 (3-11) 11/21/24 11:10 BUN 10 mg/dl (6-23) 11/21/24 11:10 Creatinine 0.86 mg/dl (0.6-1.4) 11/21/24 11:10 Est Cr Clr Drug Dosing 113.7 ml/min 11/21/24 11:10 eGFR 97.29 11/21/24 11:10 BUN/Creatinine Ratio 11.6 (10-20) 11/21/24 11:10 Glucose 98 mg/dl (70-99(Fasting)) 11/21/24 11:10 Lactate 1.2 mmol/L (0.4-2.0) 11/21/24 13:31 Calcium 8.6 mg/dl (8.6-10.3) 11/21/24 11:10 Magnesium 2.1 mg/dl (1.7-2.4) 11/21/24 11:10 Total Bilirubin 0.4 mg/dl (0.2-1.0) 11/21/24 11:10 AST 27 U/L (13-39) 11/21/24 11:10 ALT 25 U/L (7-52) 11/21/24 11:10 Alkaline Phosphatase 66 U/L (34-104) 11/21/24 11:10 Troponin I High Sens 5.6 pg/ml (0-20) 11/21/24 11:10 Total Protein 6.5 gm/dl (6.0-8.3) 11/21/24 11:10 Albumin 3.0 gm/dl (3.4-5.0) L 11/21/24 11:10 Globulin 3.5 gm/dl (2.5-4.0) 11/21/24 11:10 Albumin/Globulin Ratio 0.9 (0.9-2) 11/21/24 11:10 Procalcitonin 0.12 ng/ml (0-0.5) 11/21/24 11:10 Impressions Chest X-Ray 11/21/24 10:49 XR chest 1V not portable CLINICAL HISTORY: Sepsis COMPARISON STUDY: 11/16/2024 FINDINGS: Heart size and pulmonary vasculature are normal. There is stable mild blunting of the left costophrenic angle. No other consolidation or pleural effusion. No pneumothorax. IMPRESSION: No acute findings. ACT 112: Negative or not required by law. Electronically signed by: Yung Ledbetter M.D. 11/21/2024 1:11 PM
--- NOTE | 2024-11-21 14:36 | History & Physical Report ---
Date of Service November 21, 2024 Assessment & Plan (1) Right arm cellulitis: Plan: Assessment: 1. Right arm infection status post abscess with I&D deep tissue. Appears to be approximately postoperative day 3 however we do not have the records from [facility] at this point yet. Incision looks good there is no active erythema or discharge. Wound culture was obtained by the ER provider. IV vancomycin and IV Zosyn ordered by ER provider. Will continue that at this point until culture data is resulted. 2. Liquid diarrhea. Question adverse reaction to Augmentin versus C. difficile. Stool cultures are obtained. If positive for C. difficile we will certainly treat with oral vancomycin. 2. History of vitamin D deficiency. 3. Mild anemia. Appears stable. Hemoglobin on November 18 was 12.6. Today 13.9 mildly hemoconcentrated probably from volume loss and diarrhea. Will continue to monitor. 4. Mild hypertension. 162/91. Will monitor carefully introduce antihypertensive therapy if indicated. Plan: As discussed above. Please refer to orders for further planning. History of Present Illness Chief Complaint: Low-grade fever, diarrhea, status post surgical I&D right forearm abscess. Primary Care Provider: PACHECO Saba This is a 64-year-old gentleman from [facility] he was admitted here [facility] and transferred to [facility] on or about November 16. He was discharged from [facility] Monday evening, this being , patient underwent deep I&D at [facility] records which are not currently available. Patient's developed diarrhea on the night of discharge. It is watery. Its approximately every hour. He was discharged on Augmentin orally. He has also had low-grade fevers. He presented the ER for further evaluation and treatment today. Upon presentation patient's vital signs are unremarkable he is afebrile he is mildly hypertensive. He is on room air at 98% and he is not tachycardic with a heart rate of 64. Laboratory studies were unremarkable including a normal white blood cell count of 10.3. Electrolytes were satisfactory despite the reported diarrhea. Lactic acid was normal. Course in the emergency department wound culture was obtained by the ER provider. Patient received IV vancomycin and IV Zosyn. Stool cultures for C. difficile have been ordered but are pending at the time of this dictation. Allergies Allergy/AdvReac Type Severity Reaction Status Date / Time No Known Allergies Allergy Unverified 11/16/24 11:25 Home Medications Medication Instructions Recorded Confirmed Type cholecalciferol (vitamin D3) 25 25 mcg PO DAILY 11/16/24 11/21/24 History mcg (1,000 unit) tablet (Vitamin D3) Past Med/Surg History Problem List (Updated 11/18/24 @ 13:55 by Amador Kelly MD) Pyomyositis Abscess Encounter for pre-operative examination Right arm cellulitis Sepsis Medical History Arthritis of knee Surgical History History of hand surgery Left hand surgery from prior cut Social History Smoking Status: Former smoker Second Hand Exposure: No; Hx Alcohol Use: No Hx Substance Use: No Preferred Language: East Timorese Communication Ability: Effective Marine 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 Physical Exam Physical Exam: In General: In general pleasant 64-year-old male who is alert and oriented x 3 at the time of my exam. He is in no acute distress. Accompanied by 2 guards at the time of my examination as well as the patient's ER registered nurse as well as the EVELIO from orthopedics. HEENT: Normocephalic atraumatic pupils are equal round and reactive to light bilaterally. No scleral icterus no conjunctival injection external auditory canals are patent septum is in the midline nose is without discharge oral mucosa is pink and moist without lesion. NECK: Supple no rigidity no lymphadenopathy no thyromegaly no carotid bruits no JVD no masses. HEART: Regular rate and rhythm I do not appreciate any ectopy or rub. No murmur. LUNGS: Clear to auscultation bilaterally and anteriorly with no evidence of adventitious sounds/wheezes rales or rhonchi. ABDOMEN: Soft nontender, no rebound, no peritoneal signs, positive bowel sounds, no appreciable organomegaly. EXTREMITIES: Intact. No significant edema. Specifically the right forearm dressing was taken down. He has an incision approximately 9 inches in length. The proximal portion of the incision has been left open with packing. There is no active discharge. There is no significant surrounding erythema. Does appear to be healthy appearing surgical site. Orthopedics at the bedside and are in agreement. Neurovascularly extremities intact. Mild dependent edema in the right hand. NEUROLOGICAL: Cranial nerves II through XII are grossly intact with no focal deficit elicited upon examination. No tremor. Results & Data Results & Data Vital Signs (Past 12 Hours) Vital Signs Temp Pulse Resp BP Pulse Ox O2 Del Method 11/21/24 10:47 37.7 C H 64 18 162/91 H 98 Room Air Code Status & VTE Plan Code Status Full code. I personally discussed with patient at the bedside. His power of senior trial attorney is his Sister Mary PG Care Time/CCT Total # of Minutes Spent Total Time Spent with Patient: Total time spent is greater than 50% in coordination of care (as documented) at patient's floor/unit and/or counseling patient: Coding Level of Care Code 91898 INT INP/OBS CARE 3/75MIN Diagnoses Right arm cellulitis L03.113
[2024-11-21] MEDS: VANCOMYCIN HCL 2,500 MG in SODIUM CHLORIDE 0.9% 500 ML IV ONE (14:49)
[2024-11-21 15:04] LABS: Appearance Urine Clear (Clear); Bilirubin Urine Negative (Negative); Blood Urine Negative (Negative); Color Urine Yellow; Glucose Urine UA Negative (Negative); Ketones Urine 1+ (Negative); Leukocyte Esterase Urine Negative (Negative); Nitrite Urine Negative (Negative); Protein Urine Negative (Negative); Specific Gravity Urine 1.017 (1.000-1.030); Urobilinogen Urine Negative (Negative); pH Urine 7.5 (4.5-7.5)
--- NOTE | 2024-11-21 15:09 | Pharmacy Report ---
Pharmacy PK ABX Note - Date of Service November 21, 2024 - Assessment and Plan Assessment 64 year old M receiving VANCOMCYIN/ZOSYN for treatment of Right arm infection status post abscess with I&D deep tissue. Previously at outside facility. Micro data from 11/17 growing Strep anginosus, Prevotella intermedia, Slackia Exigua. Reported discharged with Augmentin. New culture pending. Plan Vancomycin * Loading dose: 2500 mg IV x 1 * Maintenance dose: 1500 mg IV every 12 hours * Regimen is predicted to achieve target AUC/DECLAN of 400-600 mg/L.hr * Level to be ordered if continued > 48 hours Pharmacy will continue to follow and will adjust dose/frequency as necessary. Thank you. Pharmacy has transitioned to AUC monitoring for vancomycin. AUC/DECLAN is the preferred PK/PD target and is associated with decreased risk of nephrotoxicity compared to traditional trough targets.
[2024-11-21] MEDS ORDERED: POLYETHYLENE (MIRALAX) 17 GM PACK PO PRN (16:58)
[2024-11-21] MEDS: PIPERACILLIN/TAZOBACTAM 4.5 GM/100 ML BAG IV SCH (18:00)
[2024-11-21 22:42] LABS: Adenovirus F 40/41 PCR Not Detected (NotDetected); Astrovirus PCR Not Detected (NotDetected); Campylobacter PCR Not Detected (NotDetected); Cryptosporidium PCR Not Detected (NotDetected); Cyclospora cayetanensis PCR Not Detected (NotDetected); Entamoeba histolytica PCR Not Detected (NotDetected); Enteroaggregative E.coli(EAEC) Not Detected (NotDetected); Enteropathogenic E.coli (EPEC) Not Detected (NotDetected); Enterotoxigenic E.coli (ETEC) Not Detected (NotDetected); Giardia lamblia PCR Not Detected (NotDetected); Norovirus GI/GII PCR Not Detected (NotDetected); Plesiomonas shigelloides PCR Not Detected (NotDetected); Rotavirus A PCR Not Detected (NotDetected); Salmonella PCR Not Detected (NotDetected); Sapovirus PCR Not Detected (NotDetected); Shiga-like Toxin E.coli (STEC) Not Detected (NotDetected); Shigella/Enteroinvasive E.coli Not Detected (NotDetected); Vibrio cholerae PCR Not Detected (NotDetected); Vibrio species PCR Not Detected (NotDetected); Yersinia enterocolitica PCR Not Detected (NotDetected)
[2024-11-22] MEDS: VANCOMYCIN HCL 1,500 MG in SODIUM CHLORIDE 0.9% 500 ML IV SCH (00:14)
--- NOTE | 2024-11-22 06:16 | Electrocardiogram Report ---
Test Reason : Blood Pressure : */* mmHG Vent. Rate : 64 BPM Atrial Rate : 64 BPM P-R Int : 124 ms QRS Dur : 86 ms QT Int : 450 ms P-R-T Axes : 91 -40 -7 degrees QTcB Int : 464 ms Normal sinus rhythm Left axis deviation Poor R wave progression, consider anterior NH vs. lead placement vs. LVH Abnormal ECG When compared with ECG of 16-Nov-2024 11:27, Vent. rate has decreased by 41 bpm Confirmed by Clifton Tatum ([id number]) on 11/22/2024 6:15:38 AM Referred By: Confirmed By: Clifton Tatum
[2024-11-22 07:55] LABS: Hematocrit (blood only) 36.1 % (42.0-52.0); Hemoglobin 12.4 g/dl (14.0-18.0); Mean Corpuscular Hemoglobin 29.9 pg (25.0-34.0); Mean Corpuscular Hgb Conc 34.3 g/dL (32.0-36.0); Mean Platelet Volume 9.1 fL (9.4-12.4); Platelet Count 335 K/uL (130-400); RDW Coefficient of Variation 13.7 % (11.5-14.5); RDW Standard Deviation 42.4 fL (36.4-46.3); Red Blood Count 4.15 M/uL (4.70-6.10); White Blood Count 10.86 K/ul (4.8-10.8)
[2024-11-22 08:15] LABS: Calcium 7.7 mg/dl (8.6-10.3); Creatinine Clr Calc Pharmacy 104.8 ml/min; Potassium 3.3 mmol/L (3.5-5.1)
[2024-11-22] MEDS: CHOLECALCIFEROL 25 MCG (1000 UNITS) TAB PO SCH (09:47)
--- NOTE | 2024-11-22 10:45 | Hospitalist Progress Note ---
Date of Service November 22, 2024 Assessment & Plan (1) Diarrhea: Plan: Patient presents on account of diarrhea Stool studies and C diff pending (2) Right arm cellulitis: Plan: Patient had incision and drainage done at [facility] Wound care on board previous culture grew Strep, Prevotella and Slackia. Strep was pansensistive Continue Vanc and zosyn for now repeat wound cultures pending Plan continue hospitalization Admission and Anticipated Discharge Date Admission Date: November 21, 2024 Subjective patient seen and examined, still having diarrhea Review of Systems Review of Systems: All systems reviewed are negative, apart from the ones contained in the history. Physical Exam Physical Exam: The patient is awake, alert and oriented 3, well developed and well nourished, normocephalic and atraumatic, lying in bed and in no acute distress. HEENT--PERRL, EOMI, mucous membranes and oropharynx mildly dry Neck--supple. No JVD. No bruits. Thyroid normal, trachea midline, no adenopathy. Heart--normal S1 and S2. No murmurs, rubs or gallops. Lungs--clear bilaterally, no respiratory distress, no accessory muscle use. Abdomen--normal bowel sounds and soft. Extremities--no cyanosis or clubbing. No edema. Dermatologic--normal skin turgor, normal color, no abnormal lymph nodes, no rash. Neurologic--cranial nerves II through XII grossly intact. Rheumatologic--normal range of motion. Psychiatric--normal affect. Results & Data Results & Data Vital Signs (Past 12 Hours) Vital Signs Temp Pulse Resp BP Pulse Ox O2 Del Method 11/22/24 07:22 98.2 F 53 L 14 141/80 H 94 Room Air PG Care Time/CCT Total # of Minutes Spent Total Time Spent with Patient: Total time spent is greater than 50% in coordination of care (as documented) at patient's floor/unit and/or counseling patient: Coding Level of Care Code 94223 SUB INP/OBS CARE 2/35MIN Diagnoses Diarrhea R19.7 Diarrhea type: unspecified type Right arm cellulitis L03.113 Time Spent (min) 35 (1) Diarrhea Diarrhea type: unspecified type Qualified Code(s): R19.7 - Diarrhea, unspecified
--- NOTE | 2024-11-22 11:09 | Orthopedic Progress Note ---
Date of Service November 22, 2024 Assessment & Plan (1) Right arm cellulitis: Plan: IV antibiotics per medicine service Pain controlled p.o. medication Iodoform removed and a wet-to-dry dressing was applied Work on range of motion of hand wrist elbow and shoulder to prevent stiffness Keep wound covered Will possibly need follow-up in our clinic or with Dr. Carreon in [place] Admission and Anticipated Discharge Date Admission Date: November 21, 2024 Subjective This 64-year-old male is seen today for follow-up of a right arm celluli tis/abscess that was irrigated and debrided on 2 separate occasions (11/17/2024 and again on 11/19/[address] [place] [address] Carreon). Patient states that his pain is well-controlled. States that he is still having diarrhea. He is admitted for this by medicine service. They are concerned about possibly having C. difficile from being on IV antibiotics for a long period of time. Currently he denies chest pain, shortness of breath, nausea, vomiting, difficulty voiding or numbness or tingling in his right upper extremity. Review of Systems Review of Systems: All systems reviewed & are unremarkable except as noted in Subjective Physical Exam Physical Exam: Right upper extremity: Dressing was removed from the patient's right forearm. Iodoform packing was removed and a wet-to-dry dressing was applied. Surgical incision site is approximately 11 cm in length. Sutures are intact proximally and distally. There is mild erythema and edema but no warmth, drainage or ecchymosis. Patient is able to reach terminal flexion and extension of his elbow. He he has some limitations with wrist flexion and extension due to some swelling in his hand. His peripheral pulses are 2+. He is able to detect light sensation to touch over the pads of all digits. He is neurovascularly intact in the right upper extremity. Results & Data Vital Signs (Past 12 Hours) Vital Signs Temp Pulse Resp BP Pulse Ox O2 Del Method 11/22/24 07:22 36.8 C 53 L 14 141/80 H 94 Room Air Diagnostic Findings Laboratory Results WBC 10.86 K/ul (4.8-10.8) H 11/22/24 07:27 RBC 4.15 M/uL (4.70-6.10) L 11/22/24 07:27 Hgb 12.4 g/dl (14.0-18.0) L 11/22/24 07: Hct 36.1 % (42.0-52.0) L 11/22/24 07: MCV 87.0 fL (80.0-100.0) 11/22/24 07: MCH 29.9 pg (25.0-34.0) 11/22/24 07: MCHC 34.3 g/dL (32.0-36.0) 11/22/24 07: RDW Std Deviation 42.4 fL (36.4-46.3) 11/22/24 07: RDW Coeff of Kemi 13.7 % (11.5-14.5) 11/22/24 07: Plt Count 335 K/uL (130-400) 11/22/24 07: MPV 9.1 fL (9.4-12.4) L 11/22/24 07: Immature Gran % (Auto) 2.5 % 11/21/24 11:10 Neut % (Auto) 68.7 % 11/21/24 11:10 Lymph % (Auto) 20.2 % 11/21/24 11:10 Benson % (Auto) 4.5 % 11/21/24 11:10 Eos % (Auto) 3.2 % 11/21/24 11:10 Baso % (Auto) 0.9 % 11/21/24 11:10 Neut # (Auto) 7.11 K/uL (1.40-6.50) H 11/21/24 11:10 Lymph # (Auto) 2.09 K/uL (1.20-3.40) 11/21/24 11:10 Benson # (Auto) 0.47 K/uL (0.11-0.59) 11/21/24 11:10 Eos # (Auto) 0.33 K/uL (0.00-0.50) 11/21/24 11:10 Baso # (Auto) 0.09 K/uL (0.00-0.20) 11/21/24 11:10 Immature Gran # (Auto) 0.26 K/uL (0.01-0.20) H 11/21/24 11:10 PT 10.5 Seconds (9.0-12.0) 11/21/24 11:10 INR 1.0 (0.9-1.1) 11/21/24 11:10 APTT 25 Seconds (21-31) 11/21/24 11:10 PTT Ratio 0.9 11/21/24 11:10 Sodium 141 mmol/L (136-145) 11/22/24 07:27 Potassium 3.3 mmol/L (3.5-5.1) L 11/22/24 07:27 Chloride 112 mmol/L (98-107) H 11/22/24 07:27 Carbon Dioxide 23 mmol/L (21-32) 11/22/24 07:27 Anion Gap 6 (3-11) 11/22/24 07:27 BUN 9 mg/dl (6-23) 11/22/24 07:27 Creatinine 0.90 mg/dl (0.6-1.4) 11/22/24 07:27 Est Cr Clr Drug Dosing 104.8 ml/min 11/22/24 07:27 eGFR 95.97 11/22/24 07:27 BUN/Creatinine Ratio 10.0 (10-20) 11/22/24 07:27 Glucose 106 mg/dl (70-99(Fasting)) H 11/22/24 07:27 Lactate 1.2 mmol/L (0.4-2.0) 11/21/24 13:31 Calcium 7.7 mg/dl (8.6-10.3) L 11/22/24 07:27 Magnesium 2.1 mg/dl (1.7-2.4) 11/21/24 11:10 Total Bilirubin 0.4 mg/dl (0.2-1.0) 11/21/24 11:10 AST 27 U/L (13-39) 11/21/24 11:10 ALT 25 U/L (7-52) 11/21/24 11:10 Alkaline Phosphatase 66 U/L (34-104) 11/21/24 11:10 Troponin I High Sens 5.6 pg/ml (0-20) 11/21/24 11:10 Total Protein 6.5 gm/dl (6.0-8.3) 11/21/24 11:10 Albumin 3.0 gm/dl (3.4-5.0) L 11/21/24 11:10 Globulin 3.5 gm/dl (2.5-4.0) 11/21/24 11:10 Albumin/Globulin Ratio 0.9 (0.9-2) 11/21/24 11:10 Procalcitonin 0.12 ng/ml (0-0.5) 11/21/24 11:10 Urine Color Yellow 11/21/24 14:53 Urine Appearance Clear (Clear) 11/21/24 14:53 Urine pH 7.5 (4.5-7.5) 11/21/24 14:53 Ur Specific [place] 1.017 (1.000-1.030) 11/21/24 14:53 Urine Protein Negative (Negative) 11/21/24 14:53 Urine Glucose (UA) Negative (Negative) 11/21/24 14:53 Urine Ketones 1+ (Negative) H 11/21/24 14:53 Urine Blood Negative (Negative) 11/21/24 14:53 Urine Nitrite Negative (Negative) 11/21/24 14:53 Urine Bilirubin Negative (Negative) 11/21/24 14:53 Urine Urobilinogen Negative (Negative) 11/21/24 14:53 Ur Leukocyte Esterase Negative (Negative) 11/21/24 14:53 Nasal Screen MRSA (PCR) Negative (Negative) 11/21/24 18:05 Stl C. cayetanensis PCR Not Detected (NotDetected) 11/21/24 21:10 Stool Rotavirus A PCR Not Detected (NotDetected) 11/21/24 21:10 Stl Adenov F 40/41 PCR Not Detected (NotDetected) 11/21/24 21:10 Stool Astrovirus (PCR) Not Detected (NotDetected) 11/21/24 21:10 Stool Campylobacter PCR Not Detected (NotDetected) 11/21/24 21:10 Stl C. diff Tox B Gene Negative Cdiff Gene (Neg) 11/21/24 21:10 Stool Cryptosporidium PCR Not Detected (NotDetected) 11/21/24 21:10 Stl E.coli Shiga Tox PCR Not Detected (NotDetected) 11/21/24 21:10 Stl Enterotoxigenic E PCR Not Detected (NotDetected) 11/21/24 21:10 Stool EPEC (PCR) Not Detected (NotDetected) 11/21/24 21:10 Stool EAEC (PCR) Not Detected (NotDetected) 11/21/24 21:10 Stl E. histolytica PCR Not Detected (NotDetected) 11/21/24 21:10 Stool Giardia Lamblia PCR Not Detected (NotDetected) 11/21/24 21:10 Stool Salmonella PCR Not Detected (NotDetected) 11/21/24 21:10 Stool Sapovirus (PCR) Not Detected (NotDetected) 11/21/24 21:10 Stl P. shigelloides PCR Not Detected (NotDetected) 11/21/24 21:10 Stl Shigella/EIEC PCR Not Detected (NotDetected) 11/21/24 21:10 St Y.enterocolitica PCR Not Detected (NotDetected) 11/21/24 21:10 Stool Vibrio (PCR) Not Detected (NotDetected) 11/21/24 21:10 Stl Vibrio cholerae PCR Not Detected (NotDetected) 11/21/24 21:10 Stl Norovirus GI/GII PCR Not Detected (NotDetected) 11/21/24 21:10 Impressions Chest X-Ray 11/21/24 10:49 XR chest 1V not portable CLINICAL HISTORY: Sepsis COMPARISON STUDY: 11/16/2024 FINDINGS: Heart size and pulmonary vasculature are normal. There is stable mild blunting of the left costophrenic angle. No other consolidation or pleural effusion. No pneumothorax. IMPRESSION: No acute findings. ACT 112: Negative or not required by law. Electronically signed by: Yung Ledbetter M.D. 11/21/2024 1:11 PM
[2024-11-22] MEDS: LOPERAMIDE HCL 2 MG CAP PO STA (15:41)
[2024-11-22] MEDS: MELATONIN 3 MG TAB PO PRN (21:54)
[2024-11-22] MEDS: ACETAMINOPHEN 325 MG TAB PO PRN (21:54)
[2024-11-23 09:24] LABS: Creatinine Clr Calc Pharmacy 92.4 ml/min
[2024-11-23] MEDS: LOPERAMIDE HCL 2 MG CAP PO PRN (09:26)
[2024-11-23] MEDS: AMOXICILLIN/CLAVULANATE 875 MG TAB PO SCH (09:26)
--- NOTE | 2024-11-23 10:20 | Hospitalist Progress Note ---
Date of Service November 23, 2024 Assessment & Plan (1) Diarrhea: Plan: Patient presents on account of diarrhea Possibly due to antibiotics Stool studies negative for c diff still having about 5-7 episodes of diarrhea will continue Imodium prn (2) Right arm cellulitis: Plan: Patient had incision and drainage x 2 done at [place] Wound care on board previous culture grew Strep, Prevotella and Slackia. Strep was pansensistive Initially on Vanc and zosyn , trnasition to PO Augmentin Plan continue hospitalization, hopefully d/c when diarrhea improves Admission and Anticipated Discharge Date Admission Date: November 21, 2024 Subjective patient seen and examined, still having diarrhea Review of Systems Review of Systems: All systems reviewed are negative, apart from the ones contained in the history. Physical Exam Physical Exam: The patient is awake, alert and oriented 3, well developed and well nourished, normocephalic and atraumatic, lying in bed and in no acute distress. HEENT--PERRL, EOMI, mucous membranes and oropharynx mildly dry Neck--supple. No JVD. No bruits. Thyroid normal, trachea midline, no adenopathy. Heart--normal S1 and S2. No murmurs, rubs or gallops. Lungs--clear bilaterally, no respiratory distress, no accessory muscle use. Abdomen--normal bowel sounds and soft. Extremities--no cyanosis or clubbing. No edema. Dermatologic--normal skin turgor, normal color, no abnormal lymph nodes, no rash. Neurologic--cranial nerves II through XII grossly intact. Rheumatologic--normal range of motion. Psychiatric--normal affect. Results & Data Results & Data Vital Signs (Past 12 Hours) Vital Signs Temp Pulse Resp BP Pulse Ox O2 Del Method 11/23/24 07:11 98.1 F 56 L 17 134/72 95 Room Air PG Care Time/CCT Total # of Minutes Spent Total Time Spent with Patient: Total time spent is greater than 50% in coordination of care (as documented) at patient's floor/unit and/or counseling patient: Coding Level of Care Code 74145 SUB INP/OBS CARE 2/35MIN Diagnoses Diarrhea R19.7 Diarrhea type: unspecified type Right arm cellulitis L03.113 Time Spent (min) 35 (1) Diarrhea Diarrhea type: unspecified type Qualified Code(s): R19.7 - Diarrhea, unspecified
[2024-11-23] MEDS: POTASSIUM CHLORIDE CRTAB 20 MEQ TABCR PO STA (12:20)
[2024-11-23 21:20] VITALS: TEMP 97.7
[2024-11-24 07:18] LABS: Creatinine Clr Calc Pharmacy 109.6 ml/min
[2024-11-24 08:37] LABS: Calcium 8.7 mg/dl (8.6-10.3); Potassium 3.6 mmol/L (3.5-5.1)
--- NOTE | 2024-11-24 11:39 | Hospitalist Progress Note ---
Date of Service November 24, 2024 Assessment & Plan (1) Diarrhea: Plan: Patient presents on account of diarrhea Possibly due to antibiotics Stool studies negative for c diff No diarrhea this morning so far will continue Imodium prn Discharge tomorrow (2) Right arm cellulitis: Plan: Patient had incision and drainage x 2 done at [facility] Wound care on board previous culture grew Strep, Prevotella and Slackia. Strep was pansensistive Initially on Vanc and zosyn , Now on PO Augmentin (3) Urinary retention: Plan: Acute urinary retention, patient has not been ambulating enough, has been pretty much in the bed Has been straight cathed a couple of time, will insert pandey today, 3/2 Outpatient follow up with urology Plan continue hospitalization, hopefully d/c tomorrow Admission and Anticipated Discharge Date Admission Date: November 21, 2024 Subjective patient seen and examined, no diarrhea this morning Review of Systems Review of Systems: All systems reviewed are negative, apart from the ones contained in the history. Physical Exam Physical Exam: The patient is awake, alert and oriented 3, well developed and well nourished, normocephalic and atraumatic, lying in bed and in no acute distress. HEENT--PERRL, EOMI, mucous membranes and oropharynx mildly dry Neck--supple. No JVD. No bruits. Thyroid normal, trachea midline, no adenopathy. Heart--normal S1 and S2. No murmurs, rubs or gallops. Lungs--clear bilaterally, no respiratory distress, no accessory muscle use. Abdomen--normal bowel sounds and soft. Extremities--no cyanosis or clubbing. No edema. Dermatologic--normal skin turgor, normal color, no abnormal lymph nodes, no rash. Neurologic--cranial nerves II through XII grossly intact. Rheumatologic--normal range of motion. Psychiatric--normal affect. Results & Data Results & Data Vital Signs (Past 12 Hours) Vital Signs Temp Pulse Resp BP Pulse Ox O2 Del Method 11/24/24 07:12 97.7 F 71 16 152/75 H 95 Room Air PG Care Time/CCT Total # of Minutes Spent Total Time Spent with Patient: Total time spent is greater than 50% in coordination of care (as documented) at patient's floor/unit and/or counseling patient: Coding Level of Care Code 37074 SUB INP/OBS CARE MIN Diagnoses Diarrhea R19.7 Diarrhea type: unspecified type Right arm cellulitis L03.113 Urinary retention R33.9 Time Spent (min) 35 (1) Diarrhea Diarrhea type: unspecified type Qualified Code(s): R19.7 - Diarrhea, unspecified
[2024-11-24] MEDS: ONDANSETRON INJ 2 MG/ML 2 ML VIAL IV PRN (16:40)
[2024-11-24] MEDS: METOCLOPRAMIDE HCL INJ 5 MG/ML 2 ML VIAL IV ONE (18:20)
[2024-11-25 07:59] VITALS: BP 111/71; PULSE 58; RESP 16; O2SAT 93
[2024-11-25 08:23] LABS: BUN Creatinine Ratio 6.6 (10-20); Calcium 8.2 mg/dl (8.6-10.3); Creatinine Clr Calc Pharmacy 103.6 ml/min; Potassium 3.6 mmol/L (3.5-5.1)
--- NOTE | 2024-11-25 09:51 | Orthopedic Progress Note ---
Date of Service November 25, 2024 Assessment & Plan (1) Right arm cellulitis: Plan: Doing well. Continue wet-to-dry dressing change and oral antibiotic. Augmentin. The dressing should be changed daily at the present. Follow-up with me in my office at [facility] orthopedics 7 to 10 days from now for wound check and suture removal. Admission and Anticipated Discharge Date Admission Date: November 21, 2024 Subjective Arm feels much better. Having problems with urinating.Diarrhea has improved/resolved. Physical Exam Physical Exam: Full movement of fingers wrist forearm and elbow. Strength is normal. He has intact finger and wrist extension with normal strength and no significant pain. Erythema and swelling have essentially dissipated. There is no tenderness around the right arm wound. There is a 1 cm wide 4 to 5 cm long open area about less than half centimeter deep with wet to dry dressing. Healing well. The surrounding incision is closed and healing well. Results & Data Vital Signs (Past 12 Hours) Vital Signs Temp Pulse Resp BP Pulse Ox O2 Del Method 11/25/24 07:58 36.5 C 58 L 16 111/71 93 Room Air Laboratory Results Blood cultures and swab culture of the wound are negative. He has been afebrile.
--- NOTE | 2024-11-25 11:26 | Discharge Summary ---
Discharge Summary Date of Service November 25, 2024 Principal Dx & Hospital Course #1 = Principal Diagnosis (1) Diarrhea: Appears to be due to antibiotic use. Symptomatic treatment. No pathogens isolated. (2) Right arm cellulitis: Patient had incision and drainage x 2 done at [place]. Wound care on board. Pprevious culture grew Strep, Prevotella and Slackia. Treated while hospitalized with intravenous vancomycin and Zosyn. He is now back on Augmentin orally. He will follow-up with local direct care specialist in 5 to 7 days, Dr. Lizbet Anderson. (3) Urinary retention: Required Grajeda catheter placement on November 24. This can be removed in 2 to 3 days with a trial of voiding. He will have to follow-up with urology if the Grajeda catheter has to be replaced. Plan Discharge back to [facility] today, November 25 Admission HPI Per Admitting Provider This is a 64-year-old gentleman from [facility] he was admitted here [facility] and transferred to [facility] on or about November 16. He was discharged from [facility] Monday evening, this being , patient underwent deep I&D at [facility] records which are not currently available. Patient's developed diarrhea on the night of discharge. It is watery. Its approximately every hour. He was discharged on Augmentin orally. He has also had low-grade fevers. He presented the ER for further evaluation and treatment today. Upon presentation patient's vital signs are unremarkable he is afebrile he is mildly hypertensive. He is on room air at 98% and he is not tachycardic with a heart rate of 64. Laboratory studies were unremarkable including a normal white blood cell count of 10.3. Electrolytes were satisfactory despite the reported diarrhea. Lactic acid was normal. Course in the emergency department wound culture was obtained by the ER provider. Patient received IV vancomycin and IV Zosyn. Stool cultures for C. difficile have been ordered but are pending at the time of this dictation. Discharge Exam General-alert and oriented x3, no fever, no chills HEENT-head atraumatic and normocephalic, pupils equal and reactive to light, extraocular muscles intact Neck-no lymphadenopathy or thyromegaly, trachea midline Chest-clear to auscultation. No rales, wheezing or rhonchi Cardiac-regular rate and rhythm, normal S1 and S2 Abdomen-normal bowel sounds, no hepatosplenomegaly -Grajeda catheter in place draining clear urine Extremities-no cyanosis, clubbing, or edema. Right forearm is heavily bandaged Neuro-cranial nerves II through XII intact, motor and sensory function within normal limits, strength symmetrical, no focal deficits Psych-normal affect, normal mood Discharge Plan Discharge Items [facility] Reason For Visit: RIGHT ARM CELLULITIS Discharge Diagnosis: Right arm cellulitis, status post recent incision and drainage procedure and [facility], diarrhea due to antibiotic therapy. Urinary retention requiring Grajeda catheter placement Activity: Resume your previous activity Non-emergency contact: Primary Care Provider and Surgeon Call non-emergency contact if: you have any medication questions and your symptoms worsen Follow-up/Referrals: Wandy BERGMAN [Primary Care Provider] - Diet: Regular Addtl Attending Provider Instructions: Follow-up with local direct care specialist, Dr. Mark maier, in 5 to 7 days. Grajeda catheter remains in place at discharge. Remove Grajeda catheter in 2 days with trial of voiding. Continue oral Augmentin therapy Addtl Manager Ui Provider Instructions: Continue with antibiotics as prescribed Wet-to-dry daily dressing changes Keep wounds covered May do free gentle range of motion of fingers, wrist, elbow and shoulder Follow-up with Dr. Carreon in [place], or Dr. Chaves in [facility], [facility] orthopedics 5-7 days from discharge Pending Studies at Discharge: No Stand-Alone Forms: My [facility] Skilled Items Patient informed of condition?: Yes Discharge Level of Care: Other Communicable Disease: No Discharge Prognosis: Stable Lines: None Urinary Catheter: Yes Medications and DC Order Prescriptions: Continued cholecalciferol (vitamin D3) [Vitamin D3] 25 mcg (1,000 unit) Tablet 25 mcg PO DAILY acetaminophen 500 mg Tablet 1,000 mg PO TID PRN (Reason: Pain) ibuprofen 600 mg Tablet 600 mg PO TID PRN (Reason: Pain) amoxicillin-pot clavulanate [Augmentin] 875-125 mg Tablet 1 tab PO BID Discharge Orders: Discharge Order (Routine); Ordered 11/25/24 Ordered By: Arron Perez Admission Data Admit Date/Time: 11/21/24 14:33 Attending Provider: Arron Perez Admit Provider: Barrett Lanier Primary Care Provider: Wandy BERGMAN Other Providers: Barrett Lanier; Pedro Maldonado Hospital Stay Data Consultations 11/21/24 13:18 ED Decision to Admit Stat 11/21/24 14:46 Consult Orthopedic Surgery Routine Pending Results Patient Have Any Pending Studies at Discharge: No Discharge Instructions Given to Patient (Per Discharging Provider) Follow-up with local direct care specialist, Dr. Mark maier, in 5 to 7 days. Grajeda catheter remains in place at discharge. Remove Grajeda catheter in 2 days with trial of voiding. Continue oral Augmentin therapy Total Time Total Time Spent Total Time Spent (In Minutes): 50 minutes Coding Level of Care Code 92955 INP/OBS DISCH >30 MIN Diagnoses Diarrhea R19.7 Diarrhea type: unspecified type Right arm cellulitis L03.113 Urinary retention R33.9
== END 2024-11-25 13:55 | DRG 603 ==
LOC: ED 10:14 → 3W 14:33 → SUATTDRO 14:33 → 3W 16:43